=== PATIENT | male | born 1940 | race Caucasian/White ===

== ENCOUNTER 2018-11-17 02:22 | Inpatient (IN) | payer MEDICARE ==
[~2018-11-17] VITALS: Ht 172.7 cm; Wt 77.3 kg
[2018-11-17 04:00] VITALS: BP 169/72
[2018-11-17] MEDS ORDERED: DEXTROSE 50% 50 ML SYRINGE IV PRN ×2 (04:15→19:30)
--- NOTE | 2018-11-17 04:18 | HPEPDOC ---
[facility] Medical History & Physical Date of Admission Nov 17, 2018 Date of Service: Nov 17, 2018 Primary Care Physician: PRETTY PAUL MD Attending Physician: DAVE CABRAL MD History and Physical TIME OF SERVICE: 4:20 AM CHIEF COMPLAINT: Hematuria HISTORY OF PRESENT ILLNESS: Mr. Acosta is a 77-year-old male who was transferred from [facility] for evaluation of hematuria. Per discussion with Dr. Olea, ED Attending, the patient had right hip surgery on November 06, and thereafter had a Sanchez placed . Yesterday morning he noticed blood in the sanchez catheter; it was also irritating his penis , so he went to the ED to have the Sanchez removed. Once the Sanchez removed he had about 10 episodes of voiding jordi blood and clots. The bladder was irrigated and most the contents were bloody and clot filled. After irrigation, the Sanchez was removed but the patient had difficulty voiding. His hemoglobin was 10.5, based on previous records, in 2006 it was 14.6. Orthostats were negative. Currently the patient is complaining of severe abdominal and distention along with and penile pain. He denies having fevers, denies having chills, denies having nausea, and denies having vomiting. REVIEW OF SYSTEMS: 12 point review of systems negative except as listed in HPI PAST MEDICAL/ SURGICAL HISTORY: BPH NIDDM Chronic hypertension. 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 Denies working in a factory exposure to workplace chemicals FAMILY HISTORY: Father had colon cancer Mother had diabetes and coronary artery disease. ALLERGIES: Please see below. HOME MEDICATIONS: Please see below. PHYSICAL EXAMINATION: VITAL SIGNS: Please see below. GENERAL APPEARANCE: Well-nourished, well-developed, appears slightly anxious, does not appear septic HEENT: normocephalic, atraumatic, mucous members moist and pink CARDIOVASCULAR: Regular rate and rhythm. No murmurs, rubs or gallops. Radial pulses are intact. No lower extremity edema LUNGS: Clear to auscultation bilaterally on room air ABDOMEN: Positive bowel sounds, the abdomen is distended and firm on palpation MUSCULOSKELETAL: Range of motion intact in all 4 extremities INTEGUMENT: Is not diaphoretic and the skin is not flushed NEUROLOGICAL: Cranial nerves II-12 are grossly intact. Speech is not dysarthric PSYCHIATRIC: Alert and oriented to person, place and time, able to understand and follow commands LABORATORY DATA: From [facility] CBC: WBC 10.3, hemoglobin 10.5, and platelet count 421 Coags: INR 1, PT 10.3 Chemistry: Sodium 132, potassium 4.2, chloride 97, bicarbonate 28, BUN 18, creatinine 0.9, glucose 178, GFR >60. UA: Red, appearance cloudy, blood large, RBCs too numerous to count IMAGING: Pending MICROBIOLOGY: Pending ASSESSMENT: Mr. Acosta is a 77-year-old male. The past medical history of BPH, type 2 diabetes, and hypertension who is admitted for evaluation of hematuria. PLAN: 1. Hematuria Risk factors for malignancy include age older than 35 years . Remote history of smoking smoking, exposure to chemical toxins such as benzene and aromatic amines, history of pelvic irradiation, chronic analgesic abuse, chronic cystitis, or presence of indwelling foreign object. Plan: Admit to GI medicine/nothing by mouth with IV fluids/ morphine when necessary for pain/lidocaine gel/CT of the abdomen and pelvis with contrast/Urology consult for cystoscopy / Zosyn 2 . BPH Plan continue home meds 3. NIDDM Plan: f/u accuchecks & A1C / hypoglycemia protocol / sliding scale insulin / hold oral anti-glycemics 4. Chronic HTN Plan: c/w home meds DVT prophylaxis with SCDs. Disposition pending clinical course Home Medications Scheduled Aspirin (Aspir-Low) 81 Mg Tablet.dr, 81 MG PO DAILY Atorvastatin Calcium (Atorvastatin Calcium) 20 Mg Tablet, 20 MG PO QHS Docusate Sodium (Stool Softener) 100 Mg Capsule, 100 MG PO BID Ergocalciferol (Vitamin D2) (Vitamin D2) 50,000 Unit Capsule, 50,000 UNIT PO Q2WK 1ST AND 15TH OF MONTH Finasteride (Proscar) 5 Mg Tablet, 5 MG PO QHS Lisinopril (Lisinopril) 10 Mg Tablet, 10 MG PO DAILY Metformin HCl (Metformin HCl ER) 500 Mg Tab.er.24h, 1,000 MG PO BID Thorpe-3 Acid Ethyl Esters (Lovaza) 1 Gm Capsule, 2 CAP PO BID Ropinirole HCl (Ropinirole HCl) 1 Mg Tablet, 2 MG PO BID DINNER AND BEDTIME Tamsulosin HCl (Flomax) 0.4 Mg Capsule, 0.4 MG PO QHS Scheduled PRN Cyclobenzaprine HCl (Cyclobenzaprine HCl) 5 Mg Tablet, 5 MG PO BID PRN for MUSCLE SPASMS Meclizine HCl (Meclizine HCl) 25 Mg Tablet, 25 MG PO TID PRN for NAUSEA OR VOMITING Oxycodone HCl (Oxycodone HCl) 5 Mg Tablet, 5 MG PO Q4H PRN for PAIN Pantoprazole Sodium (Pantoprazole Sodium) 40 Mg Tablet.dr, 40 MG PO DAILY PRN for INDIGESTION Allergies Coded Allergies: ibuprofen (Verified Allergy, Intermediate, HANDS SWELLING, ITCHING, 11/17/18) gabapentin (Verified Adverse Reaction, Intermediate, SEVERE IRRITABILITY/DEPRESSION, 11/17/18) A-FIB/CHADSVASC A-FIB History Current/History of A-Fib/PAF?: No Current PO Anticoag Therapy: DAVE Hirsch MD Nov 17, 2018 04:18
[2018-11-17 04:42] LABS: HEMATOCRIT 30.5 % (42.0-52.0); HEMOGLOBIN 10.1 g/dl (13.5-17.5); MEAN CORPUSCULAR HEMOGLOBIN 30.9 pg (27.0-33.0); MEAN CORPUSCULAR HGB CONC 33.1 g/dl (32.0-36.5); MEAN CORPUSCULAR VOLUME 93.3 fl (80.0-96.0); PLATELET COUNT, AUTOMATED 379 10^3/uL (150-450); RED BLOOD COUNT 3.27 10^6/uL (4.30-6.10)
[2018-11-17] MEDS ORDERED: LIDOCAINE 2% 5ML JELLY UROJET TOP PRN (04:45)
[2018-11-17] MEDS ORDERED: LOVA1CAP17 PO (04:47)
[2018-11-17] MEDS ORDERED: ASPI81TA21 PO (04:47)
[2018-11-17] MEDS ORDERED: PROS5TAB PO (04:47)
[2018-11-17] MEDS ORDERED: PANT-23 PO (04:47)
[2018-11-17] MEDS ORDERED: DOCU-129 PO (04:47)
[2018-11-17] MEDS ORDERED: LISI10TA4 PO (04:47)
[2018-11-17] MEDS ORDERED: FLOM0.4C39 PO (04:47)
[2018-11-17] MEDS ORDERED: METF500T4 PO (04:47)
[2018-11-17] MEDS ORDERED: CYCL5TAB PO (04:47)
[2018-11-17] MEDS ORDERED: OXYC-517 PO (04:47)
[2018-11-17] MEDS ORDERED: ATOR1TAB21 PO (04:47)
[2018-11-17] MEDS ORDERED: MECL-86 PO (04:47)
[2018-11-17] MEDS ORDERED: ROPI1TAB PO (04:47)
[2018-11-17] MEDS ORDERED: VITA500045 PO (04:47)
[2018-11-17 04:53] LABS: PROTHROMBIN TIME 12.9 SECONDS (11.8-14.0)
[2018-11-17 05:06] LABS: ALBUMIN 3.1 GM/DL (3.2-5.2); ALT/SGPT 31 U/L (12-78); BILIRUBIN,TOTAL 0.7 MG/DL (0.2-1.0); BLOOD UREA NITROGEN 19 MG/DL (7-18); CALCIUM LEVEL 9.3 MG/DL (8.8-10.2); CARBON DIOXIDE LEVEL 29 MEQ/L (21-32); CHLORIDE LEVEL 96 MEQ/L (98-107); CREATININE FOR GFR 0.85 MG/DL (0.70-1.30); GLOMERULAR FILTRATION RATE > 60.0 (>42); GLUCOSE, FASTING 197 MG/DL (70-100); POTASSIUM SERUM 4.3 MEQ/L (3.5-5.1); SODIUM LEVEL 132 MEQ/L (136-145); TOTAL PROTEIN 6.3 GM/DL (6.4-8.2)
[2018-11-17 05:36] LABS: HEMOGLOBIN A1c 7.1 %
[2018-11-17] MEDS: MORPHINE 4 MG/ML 1ML VIAL/SYRINGE (J2270) IV PRN (05:40)
[2018-11-17] MEDS: NS 1,000 ML IV SCH ×2 (05:41→23:06)
[2018-11-17] MEDS: PIPERACILLIN/TAZOBACTAM SOD 3.375 GM in D5W MINI-BAG PLUS 50 ML IV SCH ×4 (06:16→23:05)
[2018-11-17 06:29] LABS: GLUCOSE, URINE (UA) MANUAL 4+(1000 MG/DL) mg/dL (NEGATIVE); KETONE, URINE MANUAL 2+ mg/dL (NEGATIVE)
[2018-11-17 06:30] LABS: BILIRUBIN, URINE MANUAL NEGATIVE (NEGATIVE); UROBILINOGEN, URINE MANUAL NORMAL (NORMAL)
[2018-11-17 06:32] LABS: RBC, URINE TNTC /hpf (0-3)
[2018-11-17 06:33] LABS: BACTERIA, URINE SMALL AMOUNT; HYALINE CAST, URINE NONE SEEN /lpf (0-1); SQUAMOUS EPITHELIAL CELL URINE NONE SEEN /hpf (SMALL AMT)
[2018-11-17] MEDS: HumaLOG INSULIN (NovoLOG) PER UNIT SC SCH ×4 (07:30→20:37)
[2018-11-17] MEDS ORDERED: ISOVUE-370 76% 100ML VIAL (Q9967) As Ordered ONE (08:03)
[2018-11-17] MEDS: rOPINIRole 1MG TAB PO SCH ×2 (09:29→20:37)
[2018-11-17] MEDS: PANTOPRAZOLE 40MG TAB (PROTONIX) PO SCH (09:29)
[2018-11-17] MEDS ORDERED: BELLADONNA 16.2mg/OPIUM 30mg 1 EA SUPP PR PRN (10:45)
--- NOTE | 2018-11-17 10:50 | REP ---
CT of the abdomen pelvis multiphase imaging, CT urogram protocol for hematuria: There are no comparison studies. Imaging is initially performed without IV contrast. This is followed by dual phase imaging after IV contrast, initially during the renal cortical phase of enhancement and later during the renal excretion phase of enhancement. There are no comparison studies. Pelvis: There is a large enhancing bladder mass with irregular margins measuring approximately 7.6 cm in diameter predominantly or sterilely in the urinary bladder extending into the mid urinary bladder. There is a small volume of urine anteriorly in the there are bladder over the surface of this large mass. There is a small collection of air anteriorly within the urinary bladder, likely from bladder catheterization. A Cash catheter is identified in the urinary bladder on the right. There is a small volume of air within the Cash catheter balloon. There are bilateral hip arthroplasties resulting in significant beam-hardening artifact and obscuration of the bladder wall posteriorly and inferiorly. The precise site of origin of the bladder mass cannot be identified by CT. No internal or external iliac, pelvic adenopathy is identified, however, beam-hardening artifact obscures the area. Abdomen: There is no periaortic adenopathy or mass. There are a few normal-size nodes. No solid renal masses are identified. There is a Bosniak type 1 simple left renal cyst measuring 4.3 cm anteriorly at the mid/upper pole. There is a nonobstructive right renal lower pole 8 mm calculus. There is no hydronephrosis or hydroureter. The adrenals are unremarkable. The visualized lung gillis are unremarkable. The hepatic parenchyma is homogeneous on all phases of the study. There is faintly visible opaque material in the dependent wall of the gallbladder near the gallbladder neck, which could represent biliary gravel or a tiny gallbladder calculi. The pancreas and spleen are unremarkable. The abdominal aorta is unremarkable except for K occasional calcified atheroma. The bowel and mesentery are unremarkable except for diverticulosis of the sigmoid colon. There is no CT evidence of diverticulitis. There is no ascites. Impression: Large bladder mass as described. Bladder. Cash catheter as described. Small volume of free air in the bladder, likely secondary to catheterization. No hydronephrosis. The left renal cortical cyst. Right renal nonobstructive calculus. No adenopathy or ascites. Diverticulosis without diverticulitis. Biliary gravel versus small gallbladder calculi. No biliary duct dilatation. Electronically Signed by Alexander Sheikh MD 11/17/2018 10:42 A
--- NOTE | 2018-11-17 12:51 | IPNPDOC ---
Subjective Review oF Systems Chief Complaint The patient is a 77-year-old male admitted with a reason for visit of Hematuria. Pt started baby asa after recent hip surgery. Bleeding with clot retention since yesterday. CT reviewed showing sig clot in bladder. General: Denies: ROS Unobtainable, Chills, Night Sweats, Fatigue, Malaise, Normal Appetite, Other Symptoms Constitutional: Denies: Fever, Chills, Sweats, Weakness, Malaise, Other Eyes: Denies: Pain, Vision change, Conjunctivae inflammation, Eyelid inflammation, Redness, Other ENT: Denies: Head Aches, Ear Pain, Dysphagia, Sinus Congestion, Post Nasal Drip, Sore Throat, Epistaxis, Other Symptoms Skin: Denies: Rash, Lesions, Jaundice, Bruising, Itching, Dry, Breakdown, Nail Changes, Other Pulmonary: Denies: Dyspnea, Cough, Pleuritic Chest Pain, Other Symptoms Cardiovascular: Denies Chest Pain, Denies Palpitations, Denies Orthopnea, Den ies Paroxysmal Noc. Dyspnea, Denies Edema, Denies Lt Headedness, Denies Other Symptoms Gastrointestinal: Denies: Nausea, Vomiting, Abdominal Pain, Diarrhea, Constipation, Melena, Hematochezia, Other Symptoms Genitourinary: Reports: Hematuria, Retention Hematologic: Denies: Bruising, Bleeding Excessively, Petecchia, Purpura, Enlarged Lymph Nodes, Other Hematologic Endocrine: Denies: Polydipsia, Polyphagia, Polyuria, Heat Intolerance, Cold Intolerance, Other Endocrine Sx Musculoskeletal: Denies: Neck Pain, Back Pain, Shoulder Pain, Arm Pain, Hand Pain, Leg Pain, Foot Pain, Joint Pain, Muscle Pain, Spasms, Other Symptoms Neurological: Denies: Weakness, Numbness, Incoordination, Change in Speech, Confusion, Seizures, Other Symptoms Psych: Denies: Mood Normal, Anxiety, Depression, Memory Issues, Thoughts of Self Harm, Anger, Thoughts of harming Other, Other Psych Objective Vital Signs/I&O Vital Signs Date Time Temp Pulse Resp B/P (MAP) Pulse Ox O2 Delivery O2 Flow Rate FiO2 11/17/18 05:50 18 11/17/18 05:40 95 11/17/18 04:00 97.3 102 169/72 (104) I&O- Last 24 Hours up to 6 AM 11/17/18 06:00 Intake Total 0 ml Output Total 550 ml Balance -550 ml Laboratory Data Labs 24H Laboratory Tests 2 11/17/18 04:21: Nucleated Red Blood Cells % (auto) 0.0, Prothrombin Time 12.9, Prothromb Time International Ratio 1.00, Anion Gap 7L, Glomerular Filtration Rate > 60.0, Estimated Mean Plasma Glucose 157H, Hemoglobin A1c 7.1, Lactic Acid Level 2.3*H, Blood Urea Nitrogen 19H, Creatinine 0.85, Sodium Level 132L, Potassium Level 4.3, Chloride Level 96L, Carbon Dioxide Level 29, Calcium Level 9.3, Aspartate Amino Transf (AST/SGOT) 15, Alanine Aminotransferase (ALT/SGPT) 31, Alkaline Phosphatase 79, Total Bilirubin 0.7, Total Protein 6.3L, Albumin 3.1L, Albumin/Globulin Ratio 0.97L 11/17/18 06:04: Urine Color (TAWANDA) REDH, Urine Appearance (TAWANDA) TURBIDH, Urine pH (TAWANDA) 7.0, Urine Specific [place] (TAWANDA) 1.010, Urine Protein 3+H, Bedside Urine Glucose (UA) 4+(1000 MG/DL)H, Bedside Urine Ketones (LAB) 2+H, Bedside Urine Blood POSITIVEH, Bedside Urine Nitrite (LAB) TRACEH, Bedside Urine Bilirubin (LAB) NEGATIVE, Bedside Urine Urobilinogen (LAB) NORMAL, Bedside Urine Leukocyte Esterase (L POSITIVEH, Urine Sediment Examination PERFORMED, Urine RBC TNTCH, Urine WBC TNTCH, Urine Squamous Epithelial Cells NONE SEEN, Urine Bacteria SMALL AMOUNTH, Urine Hyaline Casts NONE SEEN 11/17/18 06:42: Bedside Glucose (Misc Panel) 207H 11/17/18 10:20: Lactic Acid Followup at 4 Hours 1.7 11/17/18 11:57: Bedside Glucose (Misc Panel) 157H CBC/BMP Laboratory Tests 11/17/18 04:21 Red Blood Count 3.27 L, Mean Corpuscular Volume 93.3, Mean Corpuscular Hemoglobin 30.9, Mean Corpuscular Hemoglobin Concent 33.1, Red Cell Distribution Width 13.0, Calcium Level 9.3, Aspartate Amino Transf (AST/SGOT) 15, Alanine Aminotransferase (ALT/SGPT) 31, Alkaline Phosphatase 79, Total Bilirubin 0.7, Total Protein 6.3 L, Albumin 3.1 L FSBS Laboratory Tests Test 11/17/18 06:42 11/17/18 11:57 Range/Units Bedside Glucose (Misc Panel) 207 157 83-110 MG/DL Microbiology Microbiology 11/17/18 Urine Culture, Received Pending 11/17/18 Urine Culture, Received Pending Assessment/Plan Date Seen The patient was seen on 11/17/18. Patient Summary A: Gross hematuria with clot retention in pt with BPH related retention after hip surgery on asa - most likely of prostatic origin. CT with lg mass in bladder c/w clot, though BT is possible. Plan/VTE VTE Prophylaxis Ordered?: Yes VTE Exclusion Pharmacological: Hemorrhage Plan/Urinary Catheter Reason for insertion/continuin: Other-document below Plan Continue CBI with periodic hand irrigation. Hold as a and all other anticoagulants. Follow HgB and Tx as needed. would like to delay cysto til asa effect diminishes. IVF: Continue Diet: Advance Activity: [facility]: Repeat Labs in MANAS WHEELER MD Nov 17, 2018 12:51
[2018-11-17 14:00] VITALS: BP 138/63
[2018-11-17] MEDS: ACETAMINOPHEN 500 MG TAB PO PRN (15:09)
[2018-11-17] MEDS ORDERED: GLUCAGON FOR INJ 1 MG VIAL (J1610) SC PRN (19:30)
[2018-11-17] MEDS ORDERED: GLUCOSE 4 GM CHEW TABLET PO PRN (19:30)
[2018-11-17] MEDS: FINASTERIDE 5 MG TAB PO SCH (20:37)
[2018-11-17] MEDS: TAMSULOSIN 0.4 MG CAP PO SCH (20:37)
[2018-11-17] MEDS: ATORVASTATIN 20 MG TAB PO SCH (20:37)
[2018-11-17 22:00] VITALS: BP 135/61
[2018-11-18 02:00] VITALS: BP 134/62
[2018-11-18] MEDS: PIPERACILLIN/TAZOBACTAM SOD 3.375 GM in D5W MINI-BAG PLUS 50 ML IV SCH ×4 (05:13→23:10)
[2018-11-18 06:00] VITALS: BP 123/57
[2018-11-18 06:19] LABS: HEMATOCRIT 22.8 % (42.0-52.0); MEAN CORPUSCULAR HGB CONC 32.9 g/dl (32.0-36.5); MEAN CORPUSCULAR VOLUME 91.2 fl (80.0-96.0); PLATELET COUNT, AUTOMATED 315 10^3/uL (150-450); WHITE BLOOD COUNT 14.6 10^3/uL (4.0-10.0)
[2018-11-18 06:22] LABS: HEMOGLOBIN 7.5 g/dl (13.5-17.5)
[2018-11-18 06:40] LABS: BLOOD UREA NITROGEN 22 MG/DL (7-18); CALCIUM LEVEL 9.3 MG/DL (8.8-10.2); CARBON DIOXIDE LEVEL 31 MEQ/L (21-32); CHLORIDE LEVEL 102 MEQ/L (98-107); CREATININE FOR GFR 0.83 MG/DL (0.70-1.30); GLOMERULAR FILTRATION RATE > 60.0 (>42); GLUCOSE, FASTING 168 MG/DL (70-100); MAGNESIUM LEVEL 2.2 MG/DL (1.8-2.4); POTASSIUM SERUM 4.2 MEQ/L (3.5-5.1); SODIUM LEVEL 137 MEQ/L (136-145)
[2018-11-18] MEDS: HumaLOG INSULIN (NovoLOG) PER UNIT SC SCH ×4 (08:10→20:30)
[2018-11-18] MEDS: rOPINIRole 1MG TAB PO SCH ×2 (08:10→20:34)
[2018-11-18] MEDS: PANTOPRAZOLE 40MG TAB (PROTONIX) PO SCH (08:10)
[2018-11-18] MEDS: ACETAMINOPHEN 500 MG TAB PO PRN ×2 (08:11→22:50)
--- NOTE | 2018-11-18 12:57 | IPNPDOC ---
Subjective Review oF Systems Chief Complaint The patient is a 77-year-old male admitted with a reason for visit of Hematuria. General: Reports: Normal Appetite Constitutional: Reports: Weakness (sl dizziness on standing) Genitourinary: Reports: Hematuria (improving) Objective Physical Examination General Exam: Alert, Cooperative, No Acute Distress Male Exam: Normal Genital Exam Other physical findings Urine nearly clear Vital Signs/I&O Vital Signs Date Time Temp Pulse Resp B/P (MAP) Pulse Ox O2 Delivery O2 Flow Rate FiO2 11/18/18 06:00 98.1 93 20 123/57 (79) 95 I&O- Last 24 Hours up to 6 AM 11/18/18 06:00 Intake Total 1940 ml Output Total 4450 ml Balance -2510 ml Laboratory Data Labs 24H Laboratory Tests 2 11/17/18 17:01: Bedside Glucose (Misc Panel) 204H 11/17/18 20:24: Bedside Glucose (Misc Panel) 172H 11/18/18 05:43: Nucleated Red Blood Cells % (auto) 0.0, Anion Gap 4L, Glomerular Filtration Rate > 60.0, Blood Urea Nitrogen 22H, Creatinine 0.83, Sodium Level 137, Potassium Level 4.2, Chloride Level 102, Carbon Dioxide Level 31, Calcium Level 9.3, Magnesium Level 2.2 11/18/18 12:15: Bedside Glucose (Misc Panel) 172H CBC/BMP Laboratory Tests 11/18/18 05:43 Red Blood Count 2.50 L, Mean Corpuscular Volume 91.2, Mean Corpuscular Hemoglobin 30.0, Mean Corpuscular Hemoglobin Concent 32.9, Red Cell Distribution Width 13.3, Calcium Level 9.3 FSBS Laboratory Tests Test 11/17/18 17:01 11/17/18 20:24 11/18/18 12:15 Range/Units Bedside Glucose (Misc Panel) 204 172 172 83-110 MG/DL Microbiology Microbiology 11/17/18 Blood Culture, Received Pending 11/17/18 Blood Culture, Received Pending 11/17/18 Urine Culture, Received Pending Assessment/Plan Date Seen The patient was seen on 11/18/18. Patient Summary A: Hematuria - improving. Lg amt of clot irrigated from bladder by nursing staff yesterday - very little today. Isolated temp spike. Plan/VTE VTE Prophylaxis Ordered?: Yes VTE Exclusion Pharmacological: Hemorrhage Plan/Urinary Catheter Reason for insertion/continuin: Other-document below (hematuria) Plan P: Prob cysto on with poss Bx and RTGs. TURBT if tumor present. Awaiting culture. OK to PT. Tx if HgB continues to fall IVF: Continue Diet: Advance Activity: [facility]: Repeat Labs in AM MANAS GREEN MD Nov 18, 2018 12:57
[2018-11-18 14:00] VITALS: BP 132/59
--- NOTE | 2018-11-18 14:21 | IPNPDOC ---
Subjective Date Seen The patient was seen on 11/18/18. Subjective Chief Complaint/HPI Had a fever spike yesterday to 102.2 . No further fever episodes today. No chest pain or cough , no abdominal pain , nuase or vomiting or diarrhea. Still has the CBI running. Objective Physical Examination General Exam: Positive: Alert, Cooperative, No Acute Distress Eye Exam: Positive: PERRLA, Conjunctiva & lids normal, EOMI; Negative: Sclera icteric ENT Exam: Positive: Atraumatic, Mucous membr. moist/pink, Pharynx Normal Neck Exam: Positive: Supple; Negative: JVD, thyromegaly Chest Exam: Positive: Clear to auscultation, Normal air movement Heart Exam: Positive: Rate Normal, Regular Rhythm, Normal S1, Normal S2; Negative: Murmurs, Rubs Abdomen Exam: Negative: Normal bowel sounds, BS Hyperactive, BS Hypoactive, Soft, Tenderness, Hepatospenomegaly, Mass, Hernia, Other Extremity Exam: Negative: Clubbing, Cyanosis, Edema Skin Exam: Positive: Nl turgor and temperature; Negative: Rash, Breakdown Assessment /Plan Assessment Mr. Acosta is a 77-year-old male who was transferred from [facility] for evaluation of hematuria. Per discussion with Dr. Olea, ED Attending, the patient had right hip surgery on November 06, and thereafter had a Sanchez placed. Yesterday morning he noticed blood in the sanchez catheter; it was also irritating his penis , so he went to the ED to have the Sanchez removed. Once the Sanchez removed he had about 10 episodes of voiding jordi blood and clots. The bladder was irrigated and most the contents were bloody and clot filled. After irrigation, the Sanchez was removed but the patient had difficulty voiding. His hemoglobin was 10.5, based on previous records, in 2006 it was 14.6. He was transferred hre for urology evaluation . Hematuria--due to bladder mass. improving . had large amounts of clot irrigated yesterday none today . urine faintly pink Ct urogram shows There is a large enhancing bladder mass with irregular margins measuring approximately 7.6 cm in diameter predominantly posteriorly in the urinary bladder extending into the mid urinary bladder. The site of origin of the mas could not be determined. As per urology Prob cysto on with poss Bx and RTGs. TURBT Awaiting culture. urine and blood. had an episode of fever yesterday hold ASA. Anemia acute blood loss anemia from hematuria if hh falls to below 7.0 will transfuse prn. Recent hip surgery on the right hip on 11/06/18 continue PT. BPH flomax and finasteride NIDDM f/u accuchecks & A1C / hypoglycemia protocol / sliding scale insulin HTN bp well controlled will hold lisinopril Hyperlipidemia statin Restless legs continue ropinirole. Plan/VTE VTE Prophylaxis Ordered?: Yes VTE Exclusion Pharmacological: Hemorrhage Plan/Urinary Catheter Reason for insertion/continuin: Other-document below (hematuria) Plan IVF: Continue Diet: Advance Activity: [facility]: Repeat Labs in AM VS, I&O, 24H, Fishbone Vital Signs/I&O Vital Signs Date Time Temp Pulse Resp B/P (MAP) Pulse Ox O2 Delivery O2 Flow Rate FiO2 11/18/18 06:00 98.1 93 20 123/57 (79) 95 I&O- Last 24 Hours up to 6 AM 11/18/18 06:00 Intake Total 1940 ml Output Total 4450 ml Balance -2510 ml Laboratory Data 24H LABS Laboratory Tests 2 11/17/18 17:01: Bedside Glucose (Misc Panel) 204H 11/17/18 20:24: Bedside Glucose (Misc Panel) 172H 11/18/18 05:43: Nucleated Red Blood Cells % (auto) 0.0, Anion Gap 4L, Glomerular Filtration Rate > 60.0, Blood Urea Nitrogen 22H, Creatinine 0.83, Sodium Level 137, Potassium Level 4.2, Chloride Level 102, Carbon Dioxide Level 31, Calcium Level 9.3, Magnesium Level 2.2 11/18/18 12:15: Bedside Glucose (Misc Panel) 172H CBC/BMP Laboratory Tests 11/18/18 05:43 Red Blood Count 2.50 L, Mean Corpuscular Volume 91.2, Mean Corpuscular Hemoglobin 30.0, Mean Corpuscular Hemoglobin Concent 32.9, Red Cell Distribution Width 13.3, Calcium Level 9.3 Microbiology Microbiology 11/17/18 Blood Culture, Received Pending 11/17/18 Blood Culture, Received Pending 11/17/18 Urine Culture, Received Pending REJI ADAMS MD Nov 18, 2018 14:21
[2018-11-18] MEDS: FINASTERIDE 5 MG TAB PO SCH (20:34)
[2018-11-18] MEDS: TAMSULOSIN 0.4 MG CAP PO SCH (20:35)
[2018-11-18] MEDS: ATORVASTATIN 20 MG TAB PO SCH (20:35)
[2018-11-18 22:00] VITALS: BP 126/58
[2018-11-19 02:00] VITALS: BP 123/58
[2018-11-19] MEDS: PIPERACILLIN/TAZOBACTAM SOD 3.375 GM in D5W MINI-BAG PLUS 50 ML IV SCH ×4 (05:02→23:02)
[2018-11-19 06:00] VITALS: BP 136/63
[2018-11-19] MEDS: rOPINIRole 1MG TAB PO SCH ×2 (09:16→20:16)
[2018-11-19] MEDS: PANTOPRAZOLE 40MG TAB (PROTONIX) PO SCH (09:16)
[2018-11-19] MEDS: ACETAMINOPHEN 500 MG TAB PO PRN ×2 (09:17→18:49)
[2018-11-19] MEDS: HumaLOG INSULIN (NovoLOG) PER UNIT SC SCH ×4 (09:18→21:00)
[2018-11-19 10:00] VITALS: BP 138/63
[2018-11-19 12:08] LABS: HEMATOCRIT 21.6 % (42.0-52.0); MEAN CORPUSCULAR HGB CONC 32.4 g/dl (32.0-36.5); MEAN CORPUSCULAR VOLUME 95.6 fl (80.0-96.0); PLATELET COUNT, AUTOMATED 331 10^3/uL (150-450); RED BLOOD COUNT 2.26 10^6/uL (4.30-6.10); WHITE BLOOD COUNT 8.2 10^3/uL (4.0-10.0)
--- NOTE | 2018-11-19 13:10 | IPNPDOC ---
Subjective Review oF Systems Chief Complaint The patient is a 77-year-old male admitted with a reason for visit of Hematuria. General: Reports: Normal Appetite (No pain or chills) Objective Physical Examination General Exam: Alert, Cooperative, No Acute Distress Eye Exam: PERRLA, EOMI Heart Exam: Positive: Rate Normal, Regular Rhythm, Normal S1, Normal S2; Negative: Murmurs, Rubs Male Exam: Normal Genital Exam (urine clear) Skin Exam: Nl turgor and temperature Neuro Exam: Cranial Nerves 3-12 NL Vital Signs/I&O Vital Signs Date Time Temp Pulse Resp B/P (MAP) Pulse Ox O2 Delivery O2 Flow Rate FiO2 11/19/18 10:00 98.2 95 18 138/63 (88) 94 I&O- Last 24 Hours up to 6 AM 11/19/18 06:00 Intake Total 1485 ml Output Total 950 ml Balance 535 ml Laboratory Data Labs 24H Laboratory Tests 2 11/18/18 17:06: Bedside Glucose (Misc Panel) 174H 11/18/18 20:20: Bedside Glucose (Misc Panel) 159H 11/19/18 05:56: Bedside Glucose (Misc Panel) 171H 11/19/18 11:12: Nucleated Red Blood Cells % (auto) 0.0 CBC/BMP Laboratory Tests 11/19/18 11:12 Red Blood Count 2.26 L, Mean Corpuscular Volume 95.6, Mean Corpuscular Hemoglobin 31.0, Mean Corpuscular Hemoglobin Concent 32.4, Red Cell Distribution Width 13.2 FSBS Laboratory Tests Test 11/18/18 17:06 11/18/18 20:20 11/19/18 05:56 Range/Units Bedside Glucose (Misc Panel) 174 159 171 83-110 MG/DL Microbiology Microbiology 11/17/18 Blood Culture - Preliminary, Resulted No growth after 24 hours . All specim... 11/17/18 Blood Culture - Preliminary, Resulted No growth after 24 hours . All specim... 11/17/18 Urine Culture - Final, Complete Enterobacter Cloacae Complex Assessment/Plan Date Seen The patient was seen on 11/19/18. Patient Summary A: Gross hematuria/clot retention Plan/VTE VTE Prophylaxis Ordered?: Yes VTE Exclusion Pharmacological: Hemorrhage Plan/Urinary Catheter Reason for insertion/continuin: Other-document below (hematuria) Plan P: Cysto/rtg/poss Bx tomorrow pm. Risks incl infection, bleeding, anesthesia rxn d/w pt. he wishes to proceed. IVF: Continue Diet: Advance Activity: [facility]: Repeat Labs in AM MANAS GREEN MD Nov 19, 2018 13:10
[2018-11-19 14:00] VITALS: BP 131/61
[2018-11-19 15:57] LABS: BLOOD UREA NITROGEN 16 MG/DL (7-18); CARBON DIOXIDE LEVEL 32 MEQ/L (21-32); CHLORIDE LEVEL 103 MEQ/L (98-107); CREATININE FOR GFR 0.88 MG/DL (0.70-1.30); GLOMERULAR FILTRATION RATE > 60.0 (>42); GLUCOSE, FASTING 197 MG/DL (70-100); POTASSIUM SERUM 4.3 MEQ/L (3.5-5.1); SODIUM LEVEL 138 MEQ/L (136-145)
[2018-11-19 18:00] VITALS: BP 141/64
[2018-11-19] MEDS: TAMSULOSIN 0.4 MG CAP PO SCH (20:15)
[2018-11-19] MEDS: ATORVASTATIN 20 MG TAB PO SCH (20:15)
[2018-11-19] MEDS: FINASTERIDE 5 MG TAB PO SCH (20:15)
--- NOTE | 2018-11-19 21:22 | IPNPDOC ---
Subjective Date Seen The patient was seen on 11/19/18. Subjective Chief Complaint/HPI Mr. Acosta is a 77-year-old male who was transferred from [facility] for evaluation of hematuria. Per discussion with Dr. Olea, ED Attending, the patient had right hip surgery on November 06, and thereafter had a Sanchez placed. Yesterday morning he noticed blood in the sanchez catheter; it was also irritating his penis , so he went to the ED to have the Sanchez removed. Once the Sanchez removed he had about 10 episodes of voiding jordi blood and clots. The bladder was irrigated and most the contents were bloody and clot filled. After irrigation, the Sanchez was removed but the patient had difficulty voiding. His hemoglobin was 10.5, based on previous records, in 2006 it was 14.6. He was transferred hre for urology evaluation Patient is due for cystoscopy tomorrow. General: Reports: ROS Unobtainable Objective Physical Examination General Exam: Positive: Alert, No Acute Distress Eye Exam: Positive: PERRLA, Conjunctiva & lids normal, EOMI; Negative: Sclera icteric ENT Exam: Positive: Atraumatic, Mucous membr. moist/pink, Pharynx Normal Neck Exam: Positive: Supple; Negative: JVD, thyromegaly Chest Exam: Positive: Clear to auscultation, Normal air movement Heart Exam: Positive: Rate Normal, Regular Rhythm, Normal S1, Normal S2; Negative: Murmurs, Rubs Abdomen Exam: Negative: Normal bowel sounds, BS Hyperactive, BS Hypoactive, Soft, Tenderness, Hepatospenomegaly, Mass, Hernia, Other Extremity Exam: Negative: Clubbing, Cyanosis, Edema Skin Exam: Positive: Nl turgor and temperature; Negative: Rash, Breakdown Neuro Exam: Positive: Other (Debilitated,difficult to assess) Assessment /Plan Problems (1) Hematuria Problem Text: Ct abdm/pelvis showing possible bladder mass.Pt will undergo cystoscopy tomorrow,urology following.Will monitor cbc U cx c/w Enterobacter cloacae complex.Pt is on zosyn (2) IDDM (insulin dependent diabetes mellitus) Status: Chronic Problem Text: Continue ssi.Hgba1c 7.1 (3) Hypertension Status: Chronic Problem Text: On lisinopril (4) Restless leg syndrome Status: Chronic Response to Treatment: Stable Problem Text: On ropinirole (5) BPH (benign prostatic hyperplasia) Response to Treatment: Stable Problem Text: On flomax,no report of retention (6) Anemia Status: Acute Problem Text: There is drop of Hgb 7.0.Will repeat in am,if further drop,will transfuse.Pt with recent hip surgery. Plan/VTE VTE Prophylaxis Ordered?: Yes VTE Exclusion Pharmacological: Hemorrhage Plan/Urinary Catheter Reason for insertion/continuin: Other-document below (hematuria) Plan IVF: Continue Diet: Advance Activity: Advance Diagnostics: Repeat Labs in AM Disposition To be determined VS, I&O, 24H, Fishbone Vital Signs/I&O Vital Signs Date Time Temp Pulse Resp B/P (MAP) Pulse Ox O2 Delivery O2 Flow Rate FiO2 11/19/18 18:00 98.5 102 18 141/64 (89) 96 I&O- Last 24 Hours up to 6 AM 11/19/18 06:00 Intake Total 1485 ml Output Total 950 ml Balance 535 ml Laboratory Data 24H LABS Laboratory Tests 2 11/19/18 05:56: Bedside Glucose (Misc Panel) 171H 11/19/18 11:10: Anion Gap 3L, Glomerular Filtration Rate > 60.0, Blood Urea Nitrogen 16, Creatinine 0.88, Sodium Level 138, Potassium Level 4.3, Chloride Level 103, Carbon Dioxide Level 32, Calcium Level 9.0 11/19/18 11:12: Nucleated Red Blood Cells % (auto) 0.0 11/19/18 11:16: Bedside Glucose (Misc Panel) 184H 11/19/18 16:42: Bedside Glucose (Misc Panel) 150H CBC/BMP Laboratory Tests 11/19/18 11:10 Calcium Level 9.0 11/19/18 11:12 Red Blood Count 2.26 L, Mean Corpuscular Volume 95.6, Mean Corpuscular Hemoglobin 31.0, Mean Corpuscular Hemoglobin Concent 32.4, Red Cell Distribution Width 13.2 Microbiology Microbiology 11/17/18 Blood Culture - Preliminary, Resulted No Growth after 48 hours. All Specime... 11/17/18 Blood Culture - Preliminary, Resulted No Growth after 48 hours. All Specime... 11/17/18 Urine Culture - Final, Complete Enterobacter Cloacae Complex YINA LONDON MD Nov 19, 2018 21:22
[2018-11-19 22:00] VITALS: BP 130/63
[2018-11-20] VITALS (8 sets, daily range): BP systolic 128–166; BP diastolic 63–72
[2018-11-20] MEDS ORDERED: BISACODYL 5 MG TAB PO ONE
[2018-11-20] MEDS: ACETAMINOPHEN 500 MG TAB PO PRN ×2 (02:55→12:32)
[2018-11-20] MEDS: PIPERACILLIN/TAZOBACTAM SOD 3.375 GM in D5W MINI-BAG PLUS 50 ML IV SCH ×3 (05:43→17:19)
[2018-11-20] MEDS: MORPHINE 4 MG/ML 1ML VIAL/SYRINGE (J2270) IV PRN (06:02)
[2018-11-20 06:05] LABS: HEMATOCRIT 22.3 % (42.0-52.0); HEMOGLOBIN 7.2 g/dl (13.5-17.5); MEAN CORPUSCULAR HEMOGLOBIN 30.1 pg (27.0-33.0); MEAN CORPUSCULAR HGB CONC 32.3 g/dl (32.0-36.5); MEAN CORPUSCULAR VOLUME 93.3 fl (80.0-96.0); PLATELET COUNT, AUTOMATED 374 10^3/uL (150-450); RED BLOOD COUNT 2.39 10^6/uL (4.30-6.10); WHITE BLOOD COUNT 6.7 10^3/uL (4.0-10.0)
[2018-11-20 06:32] LABS: BLOOD UREA NITROGEN 15 MG/DL (7-18); CALCIUM LEVEL 9.5 MG/DL (8.8-10.2); CARBON DIOXIDE LEVEL 32 MEQ/L (21-32); CHLORIDE LEVEL 104 MEQ/L (98-107); GLOMERULAR FILTRATION RATE > 60.0 (>42); GLUCOSE, FASTING 167 MG/DL (70-100); POTASSIUM SERUM 3.8 MEQ/L (3.5-5.1); SODIUM LEVEL 138 MEQ/L (136-145)
[2018-11-20] MEDS: PANTOPRAZOLE 40MG TAB (PROTONIX) PO SCH (09:47)
[2018-11-20] MEDS: HumaLOG INSULIN (NovoLOG) PER UNIT SC SCH ×4 (09:47→21:00)
[2018-11-20] MEDS: MIRALAX *UNIT DOSE* 17GM PACKET PO SCH (09:47)
[2018-11-20] MEDS: rOPINIRole 1MG TAB PO SCH ×2 (09:48→22:21)
--- NOTE | 2018-11-20 14:40 | IPNPDOC ---
Subjective Date Seen The patient was seen on 11/20/18. Subjective Chief Complaint/HPI Mr. Acosta is a 77-year-old male who was transferred from [facility] for evaluation of hematuria. Per discussion with Dr. Olea, ED Attending, the patient had right hip surgery on November 06, and thereafter had a Sanchez placed. Yesterday morning he noticed blood in the sanchez catheter; it was also irritating his penis , so he went to the ED to have the Sanchez removed. Once the Sanchez removed he had about 10 episodes of voiding jordi blood and clots. The bladder was irrigated and most the contents were bloody and clot filled. After irrigation, the Sanchez was removed but the patient had difficulty voiding. His hemoglobin was 10.5, based on previous records, in 2006 it was 14.6. He was transferred here for urology evaluation Patient will undergo cystoscopy today at 4:00 pm Objective Physical Examination General Exam: Positive: Alert, No Acute Distress Eye Exam: Positive: PERRLA, Conjunctiva & lids normal, EOMI; Negative: Sclera icteric ENT Exam: Positive: Atraumatic, Mucous membr. moist/pink, Pharynx Normal Neck Exam: Positive: Supple; Negative: JVD, thyromegaly Chest Exam: Positive: Clear to auscultation, Normal air movement Heart Exam: Positive: Rate Normal, Regular Rhythm, Normal S1, Normal S2; Negative: Murmurs, Rubs Abdomen Exam: Negative: Normal bowel sounds, BS Hyperactive, BS Hypoactive, Soft, Tenderness, Hepatospenomegaly, Mass, Hernia, Other Extremity Exam: Positive: Other (S/p rt hip surgery with staple in place and surgery incision looking clean.); Negative: Clubbing, Cyanosis, Edema Skin Exam: Positive: Nl turgor and temperature; Negative: Rash, Breakdown Neuro Exam: Positive: Normal Gait, Normal Speech, Cranial Nerves 3-12 NL, Reflexes 2+ Psych Exam: Positive: Mental status NL, Mood NL, Oriented x 3 Assessment /Plan Problems (1) Hematuria Problem Text: Ct abdm/pelvis showing possible bladder mass.Pt will undergo cystoscopy today,urology following.Will monitor cbc U cx c/w Enterobacter cloacae complex.Pt is on zosyn Bladder irrigation. (2) Anemia Status: Acute Problem Text: Likely due to acute blood loss.Patient with recent surgery and has hematuria.Hgb 7.2 today.Will repeat in am,if Hgb<7.0,will transfuse. (3) Status post hip surgery Problem Text: Patient still has kate in place right hip.I called Dr.Robert Ross office([phone]) to find out if the kate need to come out.I spoke with his PA who has stated that the staple can remain,patient will given an appointment to be seen in the office next week to remove the kate.So far the surgical incision healing well without sign of infection. (4) IDDM (insulin dependent diabetes mellitus) Status: Chronic Problem Text: Continue ssi.Hgba1c 7.1 (5) BPH (benign prostatic hyperplasia) Response to Treatment: Stable Problem Text: On flomax,no report of retention (6) Hypertension Status: Chronic Problem Text: On lisinopril (7) Restless leg syndrome Status: Chronic Response to Treatment: Stable Problem Text: On ropinirole Plan/VTE VTE Prophylaxis Ordered?: Yes VTE Exclusion Pharmacological: Hemorrhage Plan/Urinary Catheter Reason for insertion/continuin: Other-document below (hematuria) Plan IVF: Continue Diet: Advance Activity: Advance Diagnostics: Repeat Labs in AM Disposition To be determined VS, I&O, 24H, Fishbone Vital Signs/I&O Vital Signs Date Time Temp Pulse Resp B/P (MAP) Pulse Ox O2 Delivery O2 Flow Rate FiO2 11/20/18 10:00 98.0 91 17 138/63 (88) 97 I&O- Last 24 Hours up to 6 AM 11/20/18 06:00 Intake Total 1702 ml Output Total 4525 ml Balance -2823 ml Laboratory Data 24H LABS Laboratory Tests 2 11/19/18 16:42: Bedside Glucose (Misc Panel) 150H 11/19/18 20:49: Bedside Glucose (Misc Panel) 157H 11/20/18 05:36: Nucleated Red Blood Cells % (auto) 0.0, Anion Gap 2L, Glomerular Filtration Rate > 60.0, Blood Urea Nitrogen 15, Creatinine 0.90, Sodium Level 138, Potassium Level 3.8, Chloride Level 104, Carbon Dioxide Level 32, Calcium Level 9.5 11/20/18 11:43: Bedside Glucose (Misc Panel) 111H CBC/BMP Laboratory Tests 11/20/18 05:36 Red Blood Count 2.39 L, Mean Corpuscular Volume 93.3, Mean Corpuscular Hemoglobin 30.1, Mean Corpuscular Hemoglobin Concent 32.3, Red Cell Distribution Width 13.1, Calcium Level 9.5 Microbiology Microbiology 11/17/18 Blood Culture - Preliminary, Resulted No Growth after 48 hours. All Specime... 11/17/18 Blood Culture - Preliminary, Resulted No Growth after 48 hours. All Specime... 11/17/18 Urine Culture - Final, Complete Enterobacter Cloacae Complex YINA LONDON MD Nov 20, 2018 14:40
--- NOTE | 2018-11-20 19:20 | IPNPDOC ---
Subjective Review oF Systems Chief Complaint The patient is a 77-year-old male admitted with a reason for visit of Hematuria. General: Reports: Normal Appetite Genitourinary: Reports: Hematuria (No clots. Mostly clear today; ) Objective Physical Examination General Exam: Alert, Cooperative, No Acute Distress Eye Exam: PERRLA, EOMI ENT EXAM: Atraumatic Chest Exam: Normal air movement Heart Exam: Positive: Rate Normal, Regular Rhythm, Normal S1, Normal S2; Negative: Murmurs, Rubs ABDOMEN EXAM: Soft Male Exam: Normal Genital Exam (urine clear) Skin Exam: Nl turgor and temperature Neuro Exam: Cranial Nerves 3-12 NL Vital Signs/I&O Vital Signs Date Time Temp Pulse Resp B/P (MAP) Pulse Ox O2 Delivery O2 Flow Rate FiO2 11/20/18 18:00 98.3 78 18 150/67 (94) 96 I&O- Last 24 Hours up to 6 AM 11/20/18 06:00 Intake Total 1702 ml Output Total 4525 ml Balance -2823 ml Laboratory Data Labs 24H Laboratory Tests 2 11/19/18 20:49: Bedside Glucose (Misc Panel) 157H 11/20/18 05:36: Nucleated Red Blood Cells % (auto) 0.0, Anion Gap 2L, Glomerular Filtration Rate > 60.0, Blood Urea Nitrogen 15, Creatinine 0.90, Sodium Level 138, Potassium Level 3.8, Chloride Level 104, Carbon Dioxide Level 32, Calcium Level 9.5 11/20/18 11:43: Bedside Glucose (Misc Panel) 111H CBC/BMP Laboratory Tests 11/20/18 05:36 Red Blood Count 2.39 L, Mean Corpuscular Volume 93.3, Mean Corpuscular H emoglobin 30.1, Mean Corpuscular Hemoglobin Concent 32.3, Red Cell Distribution Width 13.1, Calcium Level 9.5 FSBS Laboratory Tests Test 11/19/18 20:49 11/20/18 11:43 Range/Units Bedside Glucose (Misc Panel) 157 111 83-110 MG/DL Microbiology Microbiology 11/17/18 Blood Culture - Preliminary, Resulted No Growth after 72 hours. All specime... 11/17/18 Blood Culture - Preliminary, Resulted No Growth after 72 hours. All specime... 11/17/18 Urine Culture - Final, Complete Enterobacter Cloacae Complex Assessment/Plan Date Seen The patient was seen on 11/20/18. Problems (1) Hematuria Status: Acute Response to Treatment: Improving Discussed With: Nurse Urology Problem Text: Pt stable today with clear urine. Some catheter related pain. (2) Anemia Status: Acute (3) Status post hip surgery (4) IDDM (insulin dependent diabetes mellitus) Status: Chronic (5) BPH (benign prostatic hyperplasia) (6) Hypertension Status: Chronic (7) Restless leg syndrome Status: Chronic Plan/VTE VTE Prophylaxis Ordered?: Yes VTE Exclusion Pharmacological: Hemorrhage Plan/Urinary Catheter Reason for insertion/continuin: Other-document below (hematuria) Plan cysto with poss bx/clot evacuation IVF: Continue Diet: Advance Activity: Advance Diagnostics: Repeat Labs in MANAS WHEELER MD Nov 20, 2018 19:20
[2018-11-20] MEDS ORDERED: CONRAY-60 60% 50ML VIAL (Q9961) As Ordered ONE (19:27)
[2018-11-20] MEDS ORDERED: dexameTHASONE 4 MG/ML 1ML VIAL (J1100) As Ordered ONE (19:44)
[2018-11-20] MEDS ORDERED: MIDAZOLAM INJ 2 MG/2 ML VIAL (J2250) As Ordered ONE (19:44)
[2018-11-20] MEDS ORDERED: PROPOFOL 200 MG/20 ML VIAL As Ordered ONE (19:44)
[2018-11-20] MEDS ORDERED: LIDOCAINE 2% INJ 100 MG/5 ML SDV (FOR ANES.) As Ordered ONE (19:44)
[2018-11-20] MEDS ORDERED: ONDANSETRON 4MG/2ML VIAL (J2405) As Ordered ONE (19:44)
[2018-11-20] MEDS ORDERED: ePHEDrine SULFATE 25 MG/5 ML(5MG/ML) SYRINGE As Ordered ONE (19:44)
[2018-11-20] MEDS ORDERED: fentaNYL 100 MCG/2 ML INJECTION (J3010) As Ordered ONE (19:44)
[2018-11-20] MEDS ORDERED: PHENYLephrine HCL 500 MCG/5 ML (100MCG/ML) SYRINGE (J2370) As Ordered ONE (19:44)
[2018-11-20] MEDS ORDERED: PERCOCET 5MG/325MG TAB As Ordered ONE (20:36)
[2018-11-20] MEDS ORDERED: HYDROMORPHONE HCL 0.5 MG/ 0.5 ML SYRINGE (J1170 PER 1) As Ordered ONE ×2 (20:42→21:00)
[2018-11-20] MEDS: HYDROMORPHONE HCL 0.5 MG/ 0.5 ML SYRINGE (J1170 PER 1) IV PRN ×3 (20:43→21:00)
[2018-11-20] MEDS ORDERED: ONDANSETRON 4MG/2ML VIAL (J2405) IV PRN (20:45)
[2018-11-20] MEDS ORDERED: LR 1,000 ML IV SCH (20:45)
[2018-11-20] MEDS ORDERED: fentaNYL 100 MCG/2 ML INJECTION (J3010) IV PRN (20:45)
[2018-11-20] MEDS ORDERED: PERCOCET 5MG/325MG TAB PO PRN (20:45)
[2018-11-20] MEDS: FINASTERIDE 5 MG TAB PO SCH (22:21)
[2018-11-20] MEDS: ATORVASTATIN 20 MG TAB PO SCH (22:22)
[2018-11-20] MEDS: TAMSULOSIN 0.4 MG CAP PO SCH (22:22)
[2018-11-21 00:05] VITALS: BP 129/60
[2018-11-21] MEDS: PIPERACILLIN/TAZOBACTAM SOD 3.375 GM in D5W MINI-BAG PLUS 50 ML IV SCH ×3 (00:15→13:34)
[2018-11-21 01:05] VITALS: BP 128/61
[2018-11-21 02:05] VITALS: BP 122/59
[2018-11-21 06:00] VITALS: BP 123/58
[2018-11-21 06:44] LABS: HEMATOCRIT 22.4 % (42.0-52.0); HEMOGLOBIN 7.3 g/dl (13.5-17.5); MEAN CORPUSCULAR HEMOGLOBIN 30.3 pg (27.0-33.0); MEAN CORPUSCULAR HGB CONC 32.6 g/dl (32.0-36.5); MEAN CORPUSCULAR VOLUME 92.9 fl (80.0-96.0); PLATELET COUNT, AUTOMATED 446 10^3/uL (150-450); RED BLOOD COUNT 2.41 10^6/uL (4.30-6.10); WHITE BLOOD COUNT 5.6 10^3/uL (4.0-10.0)
[2018-11-21 07:08] LABS: BLOOD UREA NITROGEN 14 MG/DL (7-18); CALCIUM LEVEL 9.2 MG/DL (8.8-10.2); CARBON DIOXIDE LEVEL 30 MEQ/L (21-32); CHLORIDE LEVEL 104 MEQ/L (98-107); CREATININE FOR GFR 0.72 MG/DL (0.70-1.30); GLOMERULAR FILTRATION RATE > 60.0 (>42); GLUCOSE, FASTING 165 MG/DL (70-100); POTASSIUM SERUM 4.4 MEQ/L (3.5-5.1); SODIUM LEVEL 137 MEQ/L (136-145)
[2018-11-21] MEDS: PANTOPRAZOLE 40MG TAB (PROTONIX) PO SCH (08:04)
[2018-11-21] MEDS: rOPINIRole 1MG TAB PO SCH (08:04)
[2018-11-21] MEDS: HumaLOG INSULIN (NovoLOG) PER UNIT SC SCH ×2 (08:05→13:35)
[2018-11-21] MEDS: MIRALAX *UNIT DOSE* 17GM PACKET PO SCH (08:05)
--- NOTE | 2018-11-21 08:28 | IPNPDOC ---
Subjective Review oF Systems Chief Complaint The patient is a 77-year-old male admitted with a reason for visit of Hematuria. No complaints except for cath irritation Objective Physical Examination General Exam: Alert, Cooperative, No Acute Distress Eye Exam: PERRLA, EOMI ENT EXAM: Atraumatic Chest Exam: Normal air movement Heart Exam: Positive: Rate Normal, Regular Rhythm, Normal S1, Normal S2; Negative: Murmurs, Rubs ABDOMEN EXAM: Soft Male Exam: Normal Genital Exam (urine clear) Skin Exam: Nl turgor and temperature Neuro Exam: Cranial Nerves 3-12 NL Vital Signs/I&O Vital Signs Date Time Temp Pulse Resp B/P (MAP) Pulse Ox O2 Delivery O2 Flow Rate FiO2 11/21/18 06:00 97.2 78 20 123/58 (79) 95 I&O- Last 24 Hours up to 6 AM 11/21/18 06:00 Intake Total 1880 ml Output Total 2850 ml Balance -970 ml Laboratory Data Labs 24H Laboratory Tests 2 11/20/18 11:43: Bedside Glucose (Misc Panel) 111H 11/20/18 16:38: Bedside Glucose (Misc Panel) 132H 11/20/18 21:41: Bedside Glucose (Misc Panel) 159H 11/21/18 05:47: Nucleated Red Blood Cells % (auto) 0.0, Anion Gap 3L, Glomerular Filtration Rate > 60.0, Blood Urea Nitrogen 14, Creatinine 0.72, Sodium Level 137, Potassium Level 4.4, Chloride Level 104, Carbon Dioxide Level 30, Calcium Level 9.2 CBC/BMP Laboratory Tests 11/21/18 05:47 Red Blood Count 2.41 L, Mean Corpuscular Volume 92.9, Mean Corpuscular Hemoglobin 30.3, Mean Corpuscular Hemoglobin Concent 32.6, Red Cell Distribution Width 13.2, Calcium Level 9.2 FSBS Laboratory Tests Test 11/20/18 11:43 11/20/18 16:38 11/20/18 21:41 Range/Units Bedside Glucose (Misc Panel) 111 132 159 83-110 MG/DL Microbiology Microbiology 11/17/18 Blood Culture - Preliminary, Resulted No Growth after 72 hours. All specime... 11/17/18 Blood Culture - Preliminary, Resulted No Growth after 72 hours. All specime... 11/17/18 Urine Culture - Final, Complete Enterobacter Cloacae Complex Assessment/Plan Date Seen The patient was seen on 11/21/18. Patient Summary A: Urine clear after clot evacuation/fug prostatic vv; retention; enterobacter colonization P: Voiding trial now. Home with sanchez if fails. Rec 7-10 days of septra or fluoroquinolone; F/U 1 week in urology. No asa. Sign off Problems (1) Hematuria Status: Acute Response to Treatment: Improving Discussed With: Nurse Urology Problem Text: Pt stable today with clear urine. Some catheter related pain. (2) Anemia Status: Acute (3) Status post hip surgery (4) IDDM (insulin dependent diabetes mellitus) Status: Chronic (5) BPH (benign prostatic hyperplasia) (6) Hypertension Status: Chronic (7) Restless leg syndrome Status: Chronic Plan/VTE VTE Prophylaxis Ordered?: Yes VTE Exclusion Pharmacological: Hemorrhage Plan/Urinary Catheter Reason for insertion/continuin: Other-document below (hematuria) Plan IVF: Continue Diet: Advance Activity: Advance Diagnostics: Repeat Labs in AM MANAS GREEN MD Nov 21, 2018 08:27
[2018-11-21] MEDS ORDERED: NS 1,000 ML IV SCH (09:00)
--- NOTE | 2018-11-21 09:11 | REP ---
C-ARM VIEWS DURING RETROGRADE PYELOGRAM: Three C-arm views are performed. First image shows contrast opacification of the left pelvicalyceal system which shows no definite filling defect. Left ureter is also opacified on the first and second images with no gross filling defect or stricture. Third image shows partial opacification of bilateral pelvicalyceal systems and ureters. 6 seconds fluoroscopy time utilized. Electronically Signed by Alexander Bautista MD 11/21/2018 10:54 A
[2018-11-21 10:00] VITALS: BP 135/63
[2018-11-21 14:00] VITALS: BP 133/62
[2018-11-21] MEDS ORDERED: CEFU1TAB20 PO (14:28)
--- NOTE | 2018-11-21 14:31 | DS.PDOC ---
Discharge Summary General Date of Admission Nov 17, 2018 at 13:10 Date of Discharge October Primary Care Physician: Erlinda Rainey DO [facility] Attending Physician: YINA LONDON MD Specialist/Consultants Involve: MANAS GREEN MD Discharge Summary PROCEDURES PERFORMED DURING STAY: [None]. ADMITTING DIAGNOSES: Hematuria Anemia due to blood loss IDDM BPH HTN Restless leg syndrome DISCHARGE DIAGNOSES: Hematuria Anemia due to blood loss IDDM BPH HTN Restless leg syndrome COMPLICATIONS/CHIEF COMPLAINT: Hematuria. HISTORY OF PRESENT ILLNESS: . Mr. Acosta is a 77-year-old male who was transferred from [facility] for evaluation of hematuria. Per discussion with Dr. Olea, ED Attending, the patient had right hip surgery on November 06, and thereafter had a Sanchez placed. Yesterday morning he noticed blood in the sanchez catheter; it was also irritating his penis , so he went to the ED to have the Sanchez removed. Once the Sanchez removed he had about 10 episodes of voiding jordi blood and clots. The bladder was irrigated and most the contents were bloody and clot filled. After irrigation, the Sanchez was removed but the patient had difficulty voiding. His hemoglobin was 10.5, based on previous records, in 2006 it was 14.6. Orthostats were negative. Currently the patient is complaining of severe abdominal and distention along with and penile pain. He denies having fevers, denies having chills, denies having nausea, and denies having vomiting. HOSPITAL COURSE: . 77-year-old male who was transferred from [facility] for evaluation of hematuria. Patient had right hip surgery on November 06, and thereafter had a Sanchez placed.The day of admission he noted blood in the sanchez catheter; it was also irritating his penis , so he went to the ED to have the Sanchez removed. Once the Sanchez removed he had about 10 episodes of voiding jordi blood and clots. The bladder was irrigated and most the contents were bloody and clot filled. After irrigation, the Sanchez was removed but the patient had difficulty voiding. His hemoglobin was 10.5.CT abdomen/pelvis showed clots vs mass in the bladder.Urology was consulted on admission and patient continued to have the sanchez with bladder irrigation.On 11/20/18,bladder irrigation was discontinued and patient had a cystoscopy done which showed blood clots and no mass.So far no more hematuria has been noted since yesterday.Today urology has evaluated patient and has cleared him for discharge.Hgb 7.3,blood transfusion 1 unit was ordered,however it was difficult to obtain an iv access and patient has preferred not to proceed with the transfusion.During the hospitalization,Ucx grew Enterobacter cloacae and was started on zosyn.This can be contaminant but urology prefer to continue atbx for 10 more days.Patient will follow up with urology in outpatient. DISCHARGE MEDICATIONS: Please see below. ALLERGIES: Please see below. PHYSICAL EXAMINATION ON DISCHARGE: VITAL SIGNS: Please see below. GENERAL:not in distress,well nourishes HEENT:perrla,at/nc NECK:supple,no jvd CARDIOVASCULAR EXAMINATION:s1s2 nl,no m/g RESPIRATORY EXAMINATION:ctab ABDOMINAL EXAMINATION:soft,not tender. EXTREMITIES:no edema,good pulses SKIN:rash NEUROLOGICAL EXAMINATION:no deficit PSYCHIATRIC EXAMINATION:calm,no anious LABORATORY DATA: Please see below. IMAGING: CT abdomen/pelvis: Large bladder mass as described. Bladder. Sanchez catheter as described. Small volume of free air in the bladder, likely secondary to catheterization. No hydronephrosis. The left renal cortical cyst. Right renal nonobstructive calculus. No adenopathy or ascites. Diverticulosis without diverticulitis. Biliary gravel versus small gallbladder calculi. No biliary duct dilatation. PROGNOSIS:good ACTIVITY: [As tolerated]. DIET:diabetic DISCHARGE PLAN: Follow-up with pcp,urology DISPOSITION: . Home DISCHARGE INSTRUCTIONS: Take medications as prescribed Follow-up with pcp,urology,ortho Patient was informed that ortho was made aware that he is in the hospital and will see him next week DISCHARGE CONDITION: [Stable]. TIME SPENT ON DISCHARGE: Greater than 35 minutes. Vital Signs/I&Os Vital Signs Date Time Temp Pulse Resp B/P (MAP) Pulse Ox O2 Delivery O2 Flow Rate FiO2 11/21/18 10:00 98.1 93 18 135/63 (87) 96 I&O- Last 24 Hours up to 6 AM 11/21/18 06:00 Intake Total 1880 ml Output Total 2850 ml Balance -970 ml Laboratory Data Labs 24H Laboratory Tests 2 11/20/18 16:38: Bedside Glucose (Misc Panel) 132H 11/20/18 21:41: Bedside Glucose (Misc Panel) 159H 11/21/18 05:47: Nucleated Red Blood Cells % (auto) 0.0, Anion Gap 3L, Glomerular Filtration Rate > 60.0, Blood Urea Nitrogen 14, Creatinine 0.72, Sodium Level 137, Potassium Level 4.4, Chloride Level 104, Carbon Dioxide Level 30, Calcium Level 9.2 11/21/18 11:54: Bedside Glucose (Misc Panel) 192H CBC/BMP Laboratory Tests 11/21/18 05:47 Red Blood Count 2.41 L, Mean Corpuscular Volume 92.9, Mean Corpuscular Hemoglobin 30.3, Mean Corpuscular Hemoglobin Concent 32.6, Red Cell Distribution Width 13.2, Calcium Level 9.2 FSBS Laboratory Tests Test 11/20/18 16:38 11/20/18 21:41 11/21/18 11:54 Range/Units Bedside Glucose (Misc Panel) 132 159 192 83-110 MG/DL Microbiology Microbiology 11/17/18 Blood Culture - Preliminary, Resulted No Growth after 72 hours. All specime... 11/17/18 Blood Culture - Preliminary, Resulted No Growth after 72 hours. All specime... 11/17/18 Urine Culture - Final, Complete Enterobacter Cloacae Complex Discharge Medications Scheduled Aspirin (Aspir-Low) 81 Mg Tablet.dr, 81 MG PO DAILY, (Reported) Atorvastatin Calcium (Atorvastatin Calcium) 20 Mg Tablet, 20 MG PO QHS, (Reported) Docusate Sodium (Stool Softener) 100 Mg Capsule, 100 MG PO BID, (Reported) Ergocalciferol (Vitamin D2) (Vitamin D2) 50,000 Unit Capsule, 50,000 UNIT PO Q2WK, (Reported) 1ST AND 15TH OF MONTH Finasteride (Proscar) 5 Mg Tablet, 5 MG PO QHS, (Reported) Lisinopril (Lisinopril) 10 Mg Tablet, 10 MG PO DAILY, (Reported) Metformin HCl (Metformin HCl ER) 500 Mg Tab.er.24h, 1,000 MG PO BID, (Reported) [place]-3 Acid Ethyl Esters (Lovaza) 1 Gm Capsule, 2 CAP PO BID, (Reported) Ropinirole HCl (Ropinirole HCl) 1 Mg Tablet, 2 MG PO BID, (Reported) DINNER AND BEDTIME Tamsulosin HCl (Flomax) 0.4 Mg Capsule, 0.4 MG PO QHS, (Reported) Scheduled PRN Cyclobenzaprine HCl (Cyclobenzaprine HCl) 5 Mg Tablet, 5 MG PO BID PRN for MUSCLE SPASMS, (Reported) Meclizine HCl (Meclizine HCl) 25 Mg Tablet, 25 MG PO TID PRN for NAUSEA OR VOMITING, (Reported) Oxycodone HCl (Oxycodone HCl) 5 Mg Tablet, 5 MG PO Q4H PRN for PAIN, (Reported) Pantoprazole Sodium (Pantoprazole Sodium) 40 Mg Tablet.dr, 40 MG PO DAILY PRN for INDIGESTION, (Reported) Allergies Coded Allergies: ibuprofen (Verified Allergy, Intermediate, HANDS SWELLING, ITCHING, 11/17/18) gabapentin (Verified Adverse Reaction, Intermediate, SEVERE IRRITABILITY/DEPRESSION, 11/17/18) YINA LONDON MD Nov 21, 2018 14:31
--- NOTE | 2018-11-23 10:51 | RO ---
DATE OF PROCEDURE: 11/20/2018 PREPROCEDURE DIAGNOSIS: Gross hematuria with mass in bladder, clot retention. POSTPROCEDURE DIAGNOSIS: Clot retention. PROCEDURE: Cystoscopy, bilateral retrograde ureteropyelography, fulguration of prostate, evacuation of clot. SURGEON: Rashel Carter MD SILK SCREEN REPAIRER: ANESTHESIA: General. INDICATION: This 77-year-old man underwent hip surgery last week. Postoperatively, he had urinary retention and a catheter was placed, this after failing voiding trial. The patient was also on aspirin therapy for anticoagulation purposes. A day or so after catheter placement, he developed progressively reddening of his urine and ultimately clotted off his catheter. This could not be cleared. He was transferred to [facility] where a 24-Mosotho three-way Cash catheter was placed to continuous bladder irrigation, and this combined with hand irrigation was able to clear a large volume of clot from his bladder. Irrigation became clear. A CT scan done prior to clot evacuation showed a large mass effect in the bladder. This was read as a possible bladder tumor. It was my impression that this was merely clot. The patient was admitted and monitored on continuous bladder irrigation. His hemoglobin fell from 10 to 7.2. We wanted to wait a few days off aspirin to improve platelet function and brought him to the operating room (OR) tonight for evaluation endoscopically. DESCRIPTION OF PROCEDURE: After the informed consent of the patient, he was taken to the operating room where after induction of adequate anesthetic, he was prepped and draped in the usual manner. The catheter was removed prior to prep and drape. The 22-Mosotho diagnostic cystoscope was advanced to the bladder, and the bladder inspected with 30- and 70-degree lenses. There was a moderate amount of clot in the bladder. This was removed with the assistance of an Ellik evacuator and with a Phong syringe. Upon clearing the clot, we re-inspected the bladder, identified the ureteral orifices, and noted an enlarged prostate with a 4-5 cm prostatic urethra and a very prominent median lobe with several oozing prostatic vessels. Bilateral retrograde ureteropyelography was performed with a 8-Mosotho cone-tipped catheter inserted sequentially at each ureteral orifice. Iodinated contrast was then instilled in a retrograde manner, and this demonstrated prompt filling and emptied the ureters, the findings felt to be normal. The Bugbee electrode was used to fulgurate all prostatic bleeders. The procedure was concluded with placement of a 20-Mosotho two-way Cash catheter, and the patient to recovery in satisfactory condition. There were no intraoperative complications. Estimated blood loss was less than 20 mL. DISPOSITION: He is to continue under observation. We will consider a voiding trial when urine clear, possibly as soon as the morning.
== END 2018-11-21 16:10 | disposition home or self-care (01) | DRG 666 ==
LOC: M MSPAV 03:56 → INTOOBSV 03:56 → OBSVTOIN 13:10
PROVIDERS: ADMIT Internal Medicine; ATTEND Internal Medicine
PROC: 0TCB8ZZ Extirpation of Matter from Bladder, Via Natural or Artificial Opening Endoscopic (ICD-10-PCS; 2018-11-20)
PROC: 0V508ZZ Destruction of Prostate, Via Natural or Artificial Opening Endoscopic (ICD-10-PCS; principal; 2018-11-20 16:30)
DX: R31.0 Gross hematuria (principal); D62 Acute posthemorrhagic anemia; N40.1 Benign prostatic hyperplasia with lower urinary tract symptoms; E11.9 Type 2 diabetes mellitus without complications; R33.9 Retention of urine, unspecified; I10 Essential (primary) hypertension; G25.81 Restless legs syndrome; E78.5 Hyperlipidemia, unspecified; Z87.891 Personal history of nicotine dependence; Z79.82 Long term (current) use of aspirin; Z79.84 Long term (current) use of oral hypoglycemic drugs; Z79.899 Other long term (current) drug therapy; Z88.6 Allergy status to analgesic agent; Z88.8 Allergy status to other drugs, medicaments and biological substances

== ENCOUNTER 2018-11-21 23:45 | Emergency (ER) | payer MEDICARE ==
[~2018-11-21] VITALS: Ht 172.7 cm; Wt 79.5 kg
[~2018-11-21 23:45] MED LIST: ASPI81TA21 PO; ATOR1TAB21 PO; CEFU1TAB20 PO; CYCL5TAB PO; DOCU-129 PO; FLOM0.4C39 PO; LISI10TA4 PO; LOVA1CAP17 PO; MECL-86 PO; METF-791 PO; OXYC-517 PO; PANT-23 PO; PROS5TAB PO; ROPI1TAB PO; VITA500045 PO
[2018-11-21 23:46] VITALS: BP 175/78
[2018-11-22] MEDS ORDERED: LIDOCAINE 2% 5ML JELLY UROJET TOP ONE (00:15)
== END 2018-11-22 00:49 | disposition home or self-care (01) ==
LOC: M ED 23:45
DX: R33.9 Retention of urine, unspecified (principal); E11.9 Type 2 diabetes mellitus without complications; I10 Essential (primary) hypertension; K21.9 Gastro-esophageal reflux disease without esophagitis; E78.5 Hyperlipidemia, unspecified; N40.1 Benign prostatic hyperplasia with lower urinary tract symptoms; Z79.84 Long term (current) use of oral hypoglycemic drugs; Z79.899 Other long term (current) drug therapy; Z88.6 Allergy status to analgesic agent; Z88.8 Allergy status to other drugs, medicaments and biological substances

== ENCOUNTER → 2018-11-26 | Outpatient (REF) | payer MEDICARE ==
[~2018-11-26] MED LIST changes: +ACET1TAB55 PO; +CEFD300CAP PO; +FERR325T88 PO; +KEFL500C17 PO
== END ==
LOC: M SMT 12:47
PROVIDERS: ATTEND Urology
DX: N40.1 Benign prostatic hyperplasia with lower urinary tract symptoms (principal)
CPT/HCPCS: 51700; 87086; G0463

== ENCOUNTER 2018-12-10 18:53 | Observation (INO) | payer MEDICARE ==
[~2018-12-10] VITALS: Ht 172.7 cm; Wt 76.3 kg
[~2018-12-10 18:53] MED LIST changes: -ACET1TAB55 PO; -CEFD300CAP PO; -FERR325T88 PO; -KEFL500C17 PO
[2018-12-10 19:56] LABS: BASO % 0.1 % (0.0-1.0); HEMOGLOBIN 11.2 g/dl (13.5-17.5); LYMPH # 1.7 10^3/uL (1.5-5.0); LYMPH % 15.7 % (24.0-44.0); MEAN CORPUSCULAR HEMOGLOBIN 30.4 pg (27.0-33.0); MEAN CORPUSCULAR VOLUME 94.9 fl (80.0-96.0); MONO # 0.7 10^3/uL (0.0-0.8); MONO % 6.5 % (0.0-5.0); NEUTROPHILS # 8.4 10^3/uL (1.5-8.5); NEUTROPHILS % 77.1 % (36.0-66.0); PLATELET COUNT, AUTOMATED 164 10^3/uL (150-450); RED BLOOD COUNT 3.69 10^6/uL (4.30-6.10); WHITE BLOOD COUNT 10.9 10^3/uL (4.0-10.0)
[2018-12-10] MEDS ORDERED: ACETAMINOPHEN TAB 650MG DOSE (2X325MG) PO ONE (20:15)
[2018-12-10] MEDS ORDERED: NS 1,000 ML IV ONE (20:15)
[2018-12-10 20:26] LABS: ALBUMIN 3.4 GM/DL (3.2-5.2); ALT/SGPT 13 U/L (12-78); BILIRUBIN,TOTAL 0.9 MG/DL (0.2-1.0); BLOOD UREA NITROGEN 15 MG/DL (7-18); CALCIUM LEVEL 9.4 MG/DL (8.8-10.2); CARBON DIOXIDE LEVEL 28 MEQ/L (21-32); CHLORIDE LEVEL 99 MEQ/L (98-107); GLOMERULAR FILTRATION RATE > 60.0 (>42); GLUCOSE, FASTING 180 MG/DL (70-100); SODIUM LEVEL 136 MEQ/L (136-145); TOTAL PROTEIN 6.5 GM/DL (6.4-8.2)
[2018-12-10 21:01] LABS: INFLUENZA A AMPLIFICATION NEGATIVE (NEGATIVE); INFLUENZA B AMPLIFICATION NEGATIVE (NEGATIVE)
[2018-12-10 21:14] LABS: CK-MB VALUE MASS < 1.0 NG/ML (<3.6); CPK CREATINE PHOSPHOKINASE 70 U/L (39-308); MB/CK RELATIVE INDEX 1.43 (< OR =4); TROPONIN I < 0.02 NG/ML (< 0.10)
--- NOTE | 2018-12-10 21:51 | REPVR ---
EXAM: XR Chest, 2 Views EXAM DATE/TIME: 12/10/2018 8:14 PM CLINICAL HISTORY: 77 years old, male; Fever TECHNIQUE: Imaging protocol: XR of the chest Views: 2 views. COMPARISON: No relevant prior studies available. FINDINGS: Lungs: Unremarkable. No consolidation. Pleural space: Unremarkable. No pleural effusion. No pneumothorax. Heart/Mediastinum: Unremarkable. No cardiomegaly. Bones/joints: Unremarkable. IMPRESSION: No evidence for acute pulmonary disease. Electronically signed by: James Pascal On 12/10/2018 21:50:38 PM
--- NOTE | 2018-12-10 21:52 | REPVR ---
EXAM: CT Head Without Contrast EXAM DATE/TIME: 12/10/2018 9:03 PM CLINICAL HISTORY: 77 years old, male; Pain; Headache; Additional info: Trauma TECHNIQUE: Imaging protocol: Computed tomography of the head without contrast. Radiation optimization: All CT scans at this facility use at least one of these dose optimization techniques: automated exposure control; mA and/or kV adjustment per patient size (includes targeted exams where dose is matched to clinical indication); or iterative reconstruction. COMPARISON: No relevant prior studies available. FINDINGS: Brain: Patchy lucencies in the white matter are nonspecific but most suggestive of chronic microvascular ischemic disease. There is no evidence for large acute cortical infarct. No intracranial hemorrhage or extraaxial collection is identified. There is no significant intracranial mass effect. Ventricles: Normal. No ventriculomegaly. Bones/joints: Unremarkable. No acute fracture. Sinuses: Mild chronic mucosal disease involves the left maxillary and sphenoid sinuses. The visualized paranasal sinuses and air cells are otherwise clear. Mastoid air cells: Visualized mastoid air cells are well aerated. Soft tissues: Unremarkable. Vasculature: Intracranial atherosclerotic vascular calcifications are noted. IMPRESSION: No CT evidence for acute intracranial abnormality. Electronically signed by: James Pascal On 12/10/2018 21:52:44 PM
--- NOTE | 2018-12-10 21:58 | REPVR ---
EXAM: CT Cervical Spine Without Contrast EXAM DATE/TIME: 12/10/2018 9:03 PM CLINICAL HISTORY: 77 years old, male; Neck pain; Additional info: Trauma TECHNIQUE: Imaging protocol: Computed tomography images of the cervical spine without contrast. Radiation optimization: All CT scans at this facility use at least one of these dose optimization techniques: automated exposure control; mA and/or kV adjustment per patient size (includes targeted exams where dose is matched to clinical indication); or iterative reconstruction. COMPARISON: No relevant prior studies available. FINDINGS: There are operative changes of fusion from C4-T1, including disc spacer and anterior plate fusion across the C4-5, osseous fusion across the C5-6, C6-7 and C7-T1 levels, and anterior hardware fusion from C6-T1, with a metallic plate affixed to the cortices of each of the C6, C7 and T1 vertebrae with 2 screws at each level. Vertebral body heights are intact. Straightening of the cervical lordotic curve could be secondary to muscle spasm or positioning. Alignment is otherwise maintained. No acute fracture is identified. The lung apices demonstrate some pleural-based scarring. No apical pneumothorax is identified. There is multilevel facet arthrosis, disc space narrowing and marginal osteophyte formation. There is also multilevel syndesmophyte formation, which could relate to ankylosing spondylitis. There is degenerative ossification of ligamentum nuchae. There is multilevel spondylosis with variable osteophytic encroachment of several neural foramina. CT is not optimal for the evaluation of the discs, neural foramina or spinal canal or cord. There appears to be spinal stenosis at C5-6 and C6-7. IMPRESSION: 1. No acute fracture or dislocation identified. 2. Postoperative and degenerative changes as described with probable multilevel spinal stenosis. The discs, neural foramina and spinal canal could be better evaluated by means of MRI as clinically appropriate. Electronically signed by: James Pascal On 12/10/2018 21:58:15 PM
[2018-12-10] MEDS ORDERED: KEFL500C17 PO (23:00)
[2018-12-10] MEDS ORDERED: CEPHALEXIN 500 MG CAP PO ONE (23:00)
[2018-12-11] MEDS ORDERED: ACETAMINOPHEN TAB 650MG DOSE (2X325MG) PO ONE (00:45)
--- NOTE | 2018-12-11 03:37 | ED PDOC ---
Post-Departure Follow-Up ED Progress note After plan to DC home, pt felt weak again, family uncomfortable taking patient home. Plan admit. Discussed with hospitalist who will see patient. MAURI FRANCES MD Dec 11, 2018 03:37
[2018-12-11] MEDS ORDERED: MOM 30ML SUSPENSION UDC PO PRN (05:15)
[2018-12-11] MEDS ORDERED: MAALOX 30 ML SUSP *UDC PO PRN (05:15)
[2018-12-11 06:00] VITALS: BP 127/58
[2018-12-11] MEDS: FINASTERIDE 5 MG TAB PO SCH ×2 (06:42→20:52)
[2018-12-11] MEDS: ATORVASTATIN 20 MG TAB PO SCH ×2 (06:42→20:53)
[2018-12-11] MEDS: HEPARIN SOD (PORCINE) 5000 UNITS/ML VIAL SC SCH ×3 (06:42→20:53)
[2018-12-11] MEDS: TAMSULOSIN 0.4 MG CAP PO SCH ×2 (06:42→20:53)
--- NOTE | 2018-12-11 07:29 | ECGEPIP ---
[facility] - ED Test Date: 2018-12-10 Pat Name: BONNIE CONNOLLY Department: Room: [place] [address] Gender: Male City Controller: MAXIMO : 1940 Requested By: MAURI Grace Order Number: [id number] Reading MD: Silvina Ribera Measurements Intervals [place] Rate: 104 P: 58 [place]: 136 QRS: 38 QRSD: 86 T: 49 QT: 300 QTc: 395 Interpretive Statements SINUS TACHYCARDIA ABNORMAL RHYTHM ECG NSTTW abnormalities No prior Electronically Signed on 12-11-2018 7:29:12 EDT by Silvina Ribera
[2018-12-11] MEDS ORDERED: GLUCOSE 4 GM CHEW TABLET PO PRN (08:00)
[2018-12-11] MEDS ORDERED: GLUCAGON FOR INJ 1 MG VIAL (J1610) SC PRN (08:00)
[2018-12-11] MEDS ORDERED: DEXTROSE 50% 50 ML SYRINGE IV PRN (08:00)
[2018-12-11 08:17] LABS: HEMATOCRIT 34.6 % (42.0-52.0); MEAN CORPUSCULAR HEMOGLOBIN 30.6 pg (27.0-33.0); MEAN CORPUSCULAR HGB CONC 31.8 g/dl (32.0-36.5); MEAN CORPUSCULAR VOLUME 96.1 fl (80.0-96.0); PLATELET COUNT, AUTOMATED 155 10^3/uL (150-450); WHITE BLOOD COUNT 10.4 10^3/uL (4.0-10.0)
[2018-12-11 08:42] LABS: ALBUMIN 3.2 GM/DL (3.2-5.2); ALT/SGPT 16 U/L (12-78); BILIRUBIN,TOTAL 0.8 MG/DL (0.2-1.0); BLOOD UREA NITROGEN 17 MG/DL (7-18); CALCIUM LEVEL 9.5 MG/DL (8.8-10.2); CARBON DIOXIDE LEVEL 26 MEQ/L (21-32); CHLORIDE LEVEL 105 MEQ/L (98-107); CREATININE FOR GFR 1.09 MG/DL (0.70-1.30); GLOMERULAR FILTRATION RATE > 60.0 (>42); GLUCOSE, FASTING 144 MG/DL (70-100); POTASSIUM SERUM 3.8 MEQ/L (3.5-5.1); SODIUM LEVEL 140 MEQ/L (136-145); TOTAL PROTEIN 6.7 GM/DL (6.4-8.2)
[2018-12-11] MEDS: DOCUSATE SODIUM 100 MG CAP PO SCH ×2 (08:43→20:53)
[2018-12-11] MEDS: ACETAMINOPHEN TAB 650MG DOSE (2X325MG) PO PRN ×3 (08:43→19:26)
[2018-12-11] MEDS: LISINOPRIL 10 MG TAB PO SCH (08:45)
[2018-12-11] MEDS ORDERED: metFORMIN XR 500MG TAB *GLUCOPHAGE XR PO SCH (09:00)
[2018-12-11] MEDS ORDERED: MEROPENEM INJ 1 GM in APPROPRIATE DILUENT 1 EA IV SCH (09:30)
[2018-12-11] MEDS ORDERED: NS 1,000 ML IV SCH (09:30)
[2018-12-11] MEDS ORDERED: cefTRIAXone SOD 1 GM in D5W MINI-BAG PLUS 50 ML IV SCH (10:00)
[2018-12-11] MEDS: NS 1,000 ML IV SCH ×2 (10:33→18:25)
[2018-12-11] MEDS: MECLIZINE 25 MG TABLET PO PRN (13:38)
[2018-12-11] MEDS: HumaLOG INSULIN (NovoLOG) PER UNIT SC SCH ×3 (13:39→20:34)
[2018-12-11 14:00] VITALS: BP 116/58
--- NOTE | 2018-12-11 14:28 | IPNPDOC ---
Text Note Date of Service The patient was seen on 12/11/18. NOTE SUBJECTIVE: Patient admitted this morning, no H/P available. Per nursing staff and Dr. Montero's note, patient was going to be discharged but became weak as he was getting ready to leave so family uncomfortable taking the patient home so he was admitted. The patient states he had a right hip arthroplasty in early October and following the surgery he was having difficulties urinating so he had a sanchez catheter for 2 weeks following this. For the past 48-72 hours he has had i ncreasing weakness, subjective fevers, chills, and some dysuria causing him to present to the emergency department. While there his UA was found to be positive. OBJECTIVE: PHYSICAL EXAM: Vitals: (see below) General: 77 year old male who appears stated age with visible shivering while in bed and difficulty forming words as a result in mild distress. HEENT: Normocephalic, atraumatic. EOMI. No scleral icterus. Moist mucous membranes. Cardiac: RRR, Normal S1 and S2, No murmurs, gallops, rubs. Pulm: Clear to auscultation b/l. Symmetric thorax. No wheezing, crackles, rhonchi Abd: Bowel Sounds present. Abdomen is soft, non-tender, non-distended. No guarding, rebound tenderness, or rigidity. Ext: No edema or cyanosis Skin: R-hip arthroplasty scar C/D/I with no palpable crepitus. Skin was warm throughout, but dry. Neuro: No focal neuro deficits. AOx3. Speaking appropriately. LABORATORY DATA, MICROBIOLOGY: Please see below. IMAGING STUDIES: 12/10/18 CXR: No evidence for acute pulmonary disease 12/10/[address]: No CT evidence for acute intracranial abnormality 12/10/[address]: 1. No acute fracture or dislocation identified. 2. Postoperative and degenerative changes as described with probable multilevel spinal stenosis. The discs, neural foramina and spinal canal could be better evaluated by means of MRI as clinically appropriate. ASSESSMENT AND PLAN: #. Complicated UTI - By nature of him being male and his recent history of indwelling catheter this qualifies as a complicated UTI. Starting patient on IV ceftriaxone with normal saline. Patient continues to make urine. Patient has Tylenol for fevers/pain. Rigors will hopefully be relieved with Tylenol, blankets, and if need be a K- pad. - Procalcitonin elevation is not clinically significant in the setting of urinary tract infection and should be used to help de-escalate antibiotic therapy in the setting of pneumonia. I have no clinical evidence or suspicion for pneumonia. #. lactic acidosis - May be secondary to urinary tract infection, but suspect likely mixed type A/B lactic acidosis as patient is also on metformin for his diabetes. Metformin discontinued. - Increased IV maintenance fluids for patient. Will continue to monitor. #.Type II diabetes -Sliding scale insulin coverage. #.Hypertension -Continue Lisinopril, holding parameters in place #. Urinary retention -Continue flomax and finasteride #. Dyslipidemia -Continue atorvastatin #. GERD -Continue mylanta #. Vitamin D deficiency -Patient can resume this after discharge, will discontinue for time being. #.Restless leg syndrome -Continue ropinorole #. Dizziness -Ok to continue meclizine PRN DVT prophylaxis: SQ heparin DISPOSITION: Pending clinical improvement VS,Osiel, I+O VS, Osiel, I+O Laboratory Tests 12/10/18 19:34 Red Blood Count 3.69 L, Mean Corpuscular Volume 94.9, Mean Corpuscular Hemoglobin 30.4, Mean Corpuscular Hemoglobin Concent 32.0, Red Cell Distribution Width 14.2, Neutrophils (%) (Auto) 77.1 H, Lymphocytes (%) (Auto) 15.7 L, Monocytes (%) (Auto) 6.5 H, Eosinophils (%) (Auto) 0.0, Basophils (%) (Auto) 0.1, Neutrophils # (Auto) 8.4, Lymphocytes # (Auto) 1.7, Monocytes # (Auto) 0.7, Eosinophils # (Auto) 0.0, Basophils # (Auto) 0.0, Calcium Level 9.4, Aspartate Amino Transf (AST/SGOT) 10, Alanine Aminotransferase (ALT/SGPT) 13, Total Creatine Kinase 70, Alkaline Phosphatase 99, Total Bilirubin 0.9, Total Protein 6.5, Albumin 3.4 12/11/18 08:06 Red Blood Count 3.60 L, Mean Corpuscular Volume 96.1 H, Mean Corpuscular He moglobin 30.6, Mean Corpuscular Hemoglobin Concent 31.8 L, Red Cell Distribution Width 14.1, Calcium Level 9.5, Aspartate Amino Transf (AST/SGOT) 12, Alanine Aminotransferase (ALT/SGPT) 16, Alkaline Phosphatase 93, Total Bilirubin 0.8, Total Protein 6.7, Albumin 3.2 Vital Signs Date Time Temp Pulse Resp B/P (MAP) Pulse Ox O2 Delivery O2 Flow Rate FiO2 12/11/18 08:45 138/85 12/11/18 06:00 97.0 76 18 97 12/11/18 05:39 Room Air I&O- Last 24 Hours up to 6 AM 12/11/18 06:00 Intake Total 1000 ml Output Total 700 ml Balance 300 ml GME ATTESTATION GME ATTESTATION My faculty preceptor for this patient encounter was physically present during the encounter and was fully available. All aspects of the patient interview, examination, medical decision making process, and medical care plan development were reviewed and approved by the faculty preceptor. The faculty preceptor is aware and concurs with the plan as stated in the body of this note and will attest to such by his/her cosignature. ATTENDING NOTE I, Keegan Cedillo, have independently examined this patient and performed my own physical exam, as well as reviewed the documentation and edited where necessary. I have discussed in detail with the resident / student the findings and plan of treatment as documented by the resident / student and edited their note. I agree with their findings and treatment plan and have edited their documentation. I will continue to follow the patient during this hospital stay. BEATRIZ SIEGEL DO Dec 11, 2018 14:28 KEEGAN CEDILLO MD Dec 11, 2018 15:56
[2018-12-11] MEDS: rOPINIRole 1MG TAB PO SCH ×2 (18:25→20:53)
[2018-12-11 19:05] VITALS: BP 128/60
[2018-12-11 20:50] VITALS: BP 130/50
[2018-12-12] MEDS: NS 1,000 ML IV SCH (01:15)
[2018-12-12] MEDS: ACETAMINOPHEN TAB 650MG DOSE (2X325MG) PO PRN ×4 (03:42→20:59)
[2018-12-12] MEDS: HEPARIN SOD (PORCINE) 5000 UNITS/ML VIAL SC SCH ×3 (05:34→20:56)
[2018-12-12 05:40] VITALS: BP 124/58
--- NOTE | 2018-12-12 05:51 | HPEPDOC ---
General Date of Admission Dec 10, 2018 at 18:54 Date of Service: Dec 11, 2018 Attending Physician: JIM SCHWAB DO Chief Complaint The patient is a 77-year-old male admitted with a reason for visit of Acute Uti, Lightheaded. 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 His initial temperature was 101. He was given acetaminophen by mouth, labs taken, and head CT without contrast. He has significant medical history of recent left total hip replacement, spinal stenosis, diabetes mellitus type 2, insulin-dependent, essential hypertension, hematuria, restless leg syndrome, chronic anemia, and BPH. Patient was cleared to go home and started on by mouth antibiotics, Keflex 500 mg by mouth twice a day however, upon standing, he became lightheaded again and even her return and was taken at 102. Patient will be admitted Med-Surg unit observation for further evaluation with hospitalist group. Home Medications Scheduled Atorvastatin Calcium (Atorvastatin Calcium) 20 Mg Tablet, 20 MG PO QHS, (Reported) Ergocalciferol (Vitamin D2) (Vitamin D2) 50,000 Unit Capsule, 50,000 UNIT PO Q2WK, (Reported) 1ST AND 15TH OF MONTH Finasteride (Proscar) 5 Mg Tablet, 5 MG PO QHS, (Reported) Lisinopril (Lisinopril) 10 Mg Tablet, 10 MG PO DAILY, (Reported) STOPPED TAKING FOR A WEEK Metformin HCl (Metformin HCl ER) 500 Mg Tab.er.24h, 1,000 MG PO BID, (Reported) [place]-3 Acid Ethyl Esters (Lovaza) 1 Gm Capsule, 2 CAP PO BID, (Reported) Ropinirole HCl (Ropinirole HCl) 1 Mg Tablet, 2 MG PO BID, (Reported) DINNER AND BEDTIME Tamsulosin HCl (Flomax) 0.4 Mg Capsule, 0.4 MG PO QHS, (Reported) Scheduled PRN Meclizine HCl (Meclizine HCl) 25 Mg Tablet, 25 MG PO TID PRN for DIZZINESS, (Reported) Oxycodone HCl (Oxycodone HCl) 5 Mg Tablet, 5 MG PO QID PRN for PAIN, (Reported) Allergies Coded Allergies: ibuprofen (Verified Allergy, Intermediate, HANDS SWELLING, ITCHING, 12/10/18) gabapentin (Verified Adverse Reaction, Intermediate, SEVERE IRRITABILITY/DEPRESSION, 12/10/18) Past Medical History Medical History See HPI Surgical History Tonsillectomy, Left Total Hip Replacement (2019), [place] Family History Significant Family History: No pertinent family hx Social History * Smoker: Denies Alcohol: occationally Drugs: denies Recent Travel/Sick Contacts: Denies: Recent travel, Recent sick contacts Psychosocial History: Decreased mood, [place] SI and HI, Other (Brother earlier today) A-FIB/CHADSVASC A-FIB History Current/History of A-Fib/PAF?: No Review of Systems Constitutional: Reports: Fever, Malaise, Fatigue Eyes: Reports: Pain; Denies: Vision change, Conjunctivae inflammation, Eyelid inflammation, Redness, Other ENT: Denies: Head Aches, Ear Pain, Dysphagia Skin: Denies: Rash, Lesions, Jaundice, Bruising, Itching, Dry, Breakdown, Nail Changes, Other Pulmonary: Denies: Dyspnea, Cough, Pleuritic Chest Pain, Other Symptoms Cardiovascular: Reports: Lt Headedness Gastrointestinal: Denies: Nausea, Vomiting, Abdominal Pain, Diarrhea, Constipation, Melena, Hematochezia, Other Symptoms Genitourinary: Denies: Dysuria, Frequency, Incontinence, Hematuria, Retention, Other Symptoms Hematologic: Denies: Bruising, Bleeding Excessively, Petecchia, Purpura, Enlarged Lymph Nodes, Other Hematologic Musculoskeletal: Reports: Joint Pain (Right hip 7/10 on scale 1/10) Neurological: Reports: Weakness Psych: Reports: Depression Physical Examination General Exam: Positive: Cooperative, No Acute Distress Eye Exam: Positive: PERRLA, Conjunctiva & lids normal ENT Exam: Positive: Atraumatic, Mucous membr. moist/pink, Pharynx Normal, Tongue Midline, Nares Patent Neck Exam: Positive: Supple, +2 carotid pulse wo bruit Chest Exam: Positive: Clear to auscultation, Normal air movement Heart Exam: Positive: Tachycardic, Regular Rhythm, Normal S2 Telemetry: Positive: Tachycardia Abdomen Exam: Positive: Normal bowel sounds, Soft Extremity Exam: Positive: Normal pulses Skin Exam: Positive: Nl turgor and temperature Neuro Exam: Positive: Cranial Nerves 3-12 NL Psych Exam: Positive: Oriented x 3, Other (drowsy, flat affect, depressed) Vital Signs Vital Signs Date Time Temp Pulse Resp B/P (MAP) Pulse Ox O2 Delivery O2 Flow Rate FiO2 12/12/18 00:55 99.0 12/11/18 20:50 104 26 130/50 (76) 96 12/11/18 05:39 Room Air Laboratory Data Labs 24H Laboratory Tests 2 12/11/18 08:06: Nucleated Red Blood Cells % (auto) 0.0, Anion Gap 9, Glomerular Filtration Rate > 60.0, Lactic Acid Level 3.0*H, Blood Urea Nitrogen 17, Creatinine 1.09, Sodium Level 140, Potassium Level 3.8, Chloride Level 105, Carbon Dioxide Level 26, Calcium Level 9.5, Aspartate Amino Transf (AST/SGOT) 12, Alanine Aminotransferase (ALT/SGPT) 16, Alkaline Phosphatase 93, Total Bilirubin 0.8, Total Protein 6.7, Albumin 3.2, Magnesium Level 1.9, Albumin/Globulin Ratio 0.91L, Procalcitonin 4.76 12/11/18 08:49: Bedside Glucose (Misc Panel) 128H 12/11/18 12:00: Bedside Glucose (Misc Panel) 246H 12/11/18 12:23: Lactic Acid Followup at 4 Hours 3.5*H 12/11/18 17:21: Bedside Glucose (Misc Panel) 106 12/11/18 20:32: Bedside Glucose (Misc Panel) 172H CBC/BMP Laboratory Tests 12/11/18 08:06 Red Blood Count 3.60 L, Mean Corpuscular Volume 96.1 H, Mean Corpuscular Hemoglobin 30.6, Mean Corpuscular Hemoglobin Concent 31.8 L, Red Cell Distribution Width 14.1, Calcium Level 9.5, Aspartate Amino Transf (AST/SGOT) 12, Alanine Aminotransferase (ALT/SGPT) 16, Alkaline Phosphatase 93, Total Bilirubin 0.8, Total Protein 6.7, Albumin 3.2 Microbiology Microbiology 12/10/18 Blood Culture - Preliminary, Resulted No growth after 24 hours . All specim... 12/10/18 Blood Culture - Preliminary, Resulted No growth after 24 hours . All specim... 12/10/18 Urine Culture, Received Pending Echocardiogram EKG shows sinus tachycardia rate 104, IL interval 136, QRS duration 86, QT/QTc 300/360, PRT axis 58, 381, 44 RAD Interpretation STUDY: CT head neck without contrast negative for midline shift, acute changes and abnormalities. Shows postoperative changes and degenerative changes and spinal stenosis Assessment/Plan 77-year-old male arrived at [facility] ED with his complaining of fever, dizziness, malaise, weakness at home when he suffered a mechanical fall, striking his head on the floor. His initial temperature was 101. He was given acetaminophen 975 mg by mouth, 1 L bolus normal saline, urinalysis, labs taken, CK less than 1, Troponin less than 0.[address] without contrast.. Urinalysis shows acute UTI, positive for leukocytes, leukocyte esterase, nitrites, WBCs, and RBCs. Acute UTIacute. Encourage oral intake of water Acetaminophen 650 mg by mouth every 4 hours as needed for pain1-3/fever, acetaminophen/hydrocodone 5325 mg one by mouth every 6 hours as needed for pain. 410 Monitor I&O. Continue Keflex 500 mg by mouth twice a day Urine culture and blood cultures sent, pending. CBC, CMP, lactic acid Lightheadedness/dizzinessacute Rise slowly from lying to sitting to standing. PT/OT to evaluate and treat, gait Meclizine 25 mg 1 by mouth 3 times a day as needed Essential hypertensionchronic Monitor blood pressure every shift. No salt diet, carbohydrate monitored appropriately diet. Repeat EKG Continue lisinopril 10 mg by mouth daily BPHchronic. Continue Flomax 0.4 mg by mouth daily, Proscar 5 mg by mouth daily at bedtime Restless leg syndromechronic. Continue Requip 2 mg by mouth twice a day Hyperlipidemiachronic. Fasting lipid panel, Continue atorvastatin 20 mg by mouth daily Diabetes mellitus type 2 insulin-dependentchronic. POC glucose before meals and at bedtime Hemoglobin A1c Hypoglycemia protocol. Sliding scale insulin, lispro before meals and at bedtime Continue metformin 1000 mg by mouth twice a day, monitor creatinine and EGFR Prognosis: Good. DVT prophylaxis: Pharmaceuticalheparin 5000 IUs SC 3 times a day/SCDs bilateral lower extremities. Discharge: Pending Problems (1) Acute UTI (urinary tract infection) Plan / VTE VTE Prophylaxis Ordered?: Yes VTE Exclusion Mechanical Proph: Justin Lower Ex DVT Plan IVF: Initiate Diet: Continue Current Activity: Bedrest Therapy: PT, OT Medications: Bowel Regimen Respiratory: Pulse Ox on Room Air Diagnostics: Check Labs, Repeat Labs in AM, Obtain Cultures (sent blood and urine), Repeat EKG TONY ABREU Dec 12, 2018 02:37
[2018-12-12] MEDS: MECLIZINE 25 MG TABLET PO PRN (06:04)
[2018-12-12 07:33] LABS: MEAN CORPUSCULAR HEMOGLOBIN 30.5 pg (27.0-33.0); MEAN CORPUSCULAR VOLUME 95.4 fl (80.0-96.0); PLATELET COUNT, AUTOMATED 119 10^3/uL (150-450); RED BLOOD COUNT 2.62 10^6/uL (4.30-6.10); WHITE BLOOD COUNT 5.8 10^3/uL (4.0-10.0)
[2018-12-12 07:57] LABS: BLOOD UREA NITROGEN 22 MG/DL (7-18); CALCIUM LEVEL 8.2 MG/DL (8.8-10.2); CARBON DIOXIDE LEVEL 24 MEQ/L (21-32); CHLORIDE LEVEL 108 MEQ/L (98-107); CREATININE FOR GFR 0.95 MG/DL (0.70-1.30); GLOMERULAR FILTRATION RATE > 60.0 (>42); GLUCOSE, FASTING 165 MG/DL (70-100); POTASSIUM SERUM 3.5 MEQ/L (3.5-5.1); SODIUM LEVEL 140 MEQ/L (136-145)
[2018-12-12] MEDS: LISINOPRIL 10 MG TAB PO SCH ×2 (08:47→08:58)
[2018-12-12] MEDS: DOCUSATE SODIUM 100 MG CAP PO SCH ×2 (08:47→20:18)
[2018-12-12] MEDS: HumaLOG INSULIN (NovoLOG) PER UNIT SC SCH ×4 (08:48→20:22)
[2018-12-12 08:58] VITALS: BP 107/53
--- NOTE | 2018-12-12 10:28 | IPNPDOC ---
Text Note Date of Service The patient was seen on 12/12/18. NOTE SUBJECTIVE: Patient continued to have fevers overnight. This morning he states he feels better, but per his daughter he continues to have moments of transient confusion. he reports no urinary symptoms and denies any chest pain, difficulty breathing, nausea, or abdominal pain. OBJECTIVE: PHYSICAL EXAM: Vitals: (see below) General: 77 year old male sitting up in chair in no acute distress HEENT: Normocephalic, atraumatic. EOMI. No scleral icterus. Moist mucous membranes. Cardiac: RRR, Normal S1 and S2, No murmurs, gallops, rubs. Pulm: Clear to auscultation b/l. Symmetric thorax. No wheezing, crackles, rhonchi Abd: Bowel Sounds present. Abdomen is soft, non-tender, non-distended. No guarding, rebound tenderness, or rigidity. Ext: No edema or cyanosis Skin: R-hip arthroplasty scar C/D/I with no palpable crepitus. Skin was warm throughout, but dry. Neuro: No focal neuro deficits. AOx3. Speaking appropriately. LABORATORY DATA, MICROBIOLOGY: Please see below. IMAGING STUDIES: 12/10/18 CXR: No evidence for acute pulmonary disease 12/10/[address]: No CT evidence for acute intracranial abnormality 12/10/[address]: 1. No acute fracture or dislocation identified. 2. Postoperative and degenerative changes as described with probable multilevel spinal stenosis. The discs, neural foramina and spinal canal could be better evaluated by means of MRI as clinically appropriate. ASSESSMENT AND PLAN: #. Complicated UTI - Switching patient to PO cefdinir. Urine cultures pending. Blood cultures negative. continue to treat fevers with tylenol. - PT to evaluate patient today #. lactic acidosis - Resolved. #.Type II diabetes -Sliding scale insulin coverage. #.Hypertension -Continue Lisinopril, holding parameters in place #. Urinary retention -Continue flomax and finasteride #. Dyslipidemia -Continue atorvastatin #. GERD -Continue mylanta #. Vitamin D deficiency -Patient can resume this after discharge, will discontinue for time being. #.Restless leg syndrome -Continue ropinorole #. Vertigo -Continue meclizine PRN DVT prophylaxis: SQ heparin DISPOSITION: Pending clinical improvement VS,Fishbone, I+O VS, Fishbone, I+O Laboratory Tests 12/12/18 07:21 Red Blood Count 2.62 L, Mean Corpuscular Volume 95.4, Mean Corpuscular Hemoglobin 30.5, Mean Corpuscular Hemoglobin Concent 32.0, Red Cell Distribution Width 14.3, Calcium Level 8.2 L Vital Signs Date Time Temp Pulse Resp B/P (MAP) Pulse Ox O2 Delivery O2 Flow Rate FiO2 12/12/18 08:58 107/53 12/12/18 06:05 100.0 12/12/18 05:40 97 18 92 12/11/18 05:39 Room Air I&O- Last 24 Hours up to 6 AM 12/12/18 06:00 Intake Total 600 ml Balance 600 ml GME ATTESTATION GME ATTESTATION My faculty preceptor for this patient encounter was physically present during the encounter and was fully available. All aspects of the patient interview, examination, medical decision making process, and medical care plan development were reviewed and approved by the faculty preceptor. The faculty preceptor is aware and concurs with the plan as stated in the body of this note and will attest to such by his/her cosignature. ATTENDING NOTE I, Keegan Ivan, have independently examined this patient and performed my own physical exam, as well as reviewed the documentation and edited where necessary. I have discussed in detail with the resident / student the findings and plan of treatment as documented by the resident / student and edited their note. I agree with their findings and treatment plan and have edited their documentation. I will continue to follow the patient during this hospital stay. BEATRIZ SIEGEL DO Dec 12, 2018 10:28 KEEGAN IVAN MD Dec 12, 2018 14:24
[2018-12-12] MEDS: CEFDINIR 300 MG CAP (OMNICEF) PO SCH ×2 (10:38→20:59)
[2018-12-12 14:00] VITALS: BP 114/56
[2018-12-12] MEDS: rOPINIRole 1MG TAB PO SCH ×2 (17:16→20:57)
[2018-12-12] MEDS: FINASTERIDE 5 MG TAB PO SCH (21:00)
[2018-12-12] MEDS ORDERED: MUPIROCIN 2% OINT 22 GM TUBE TOP SCH (21:00)
[2018-12-12] MEDS: TAMSULOSIN 0.4 MG CAP PO SCH (21:01)
[2018-12-12] MEDS: ATORVASTATIN 20 MG TAB PO SCH (21:01)
[2018-12-12 22:00] VITALS: BP 116/56
[2018-12-13] MEDS: HEPARIN SOD (PORCINE) 5000 UNITS/ML VIAL SC SCH (05:36)
[2018-12-13 06:00] VITALS: BP 159/66
[2018-12-13 07:10] LABS: HEMATOCRIT 27.1 % (42.0-52.0); HEMOGLOBIN 8.6 g/dl (13.5-17.5); MEAN CORPUSCULAR HEMOGLOBIN 29.6 pg (27.0-33.0); MEAN CORPUSCULAR HGB CONC 31.7 g/dl (32.0-36.5); MEAN CORPUSCULAR VOLUME 93.1 fl (80.0-96.0); PLATELET COUNT, AUTOMATED 137 10^3/uL (150-450); RED BLOOD COUNT 2.91 10^6/uL (4.30-6.10)
[2018-12-13 07:38] LABS: BLOOD UREA NITROGEN 15 MG/DL (7-18); CALCIUM LEVEL 8.6 MG/DL (8.8-10.2); CARBON DIOXIDE LEVEL 27 MEQ/L (21-32); CHLORIDE LEVEL 108 MEQ/L (98-107); CREATININE FOR GFR 0.85 MG/DL (0.70-1.30); GLOMERULAR FILTRATION RATE > 60.0 (>42); GLUCOSE, FASTING 146 MG/DL (70-100); POTASSIUM SERUM 3.3 MEQ/L (3.5-5.1); SODIUM LEVEL 141 MEQ/L (136-145)
[2018-12-13] MEDS ORDERED: POTASSIUM CHLORIDE 10 MEQ SR TABLET PO ONE (08:30)
[2018-12-13] MEDS: LISINOPRIL 10 MG TAB PO SCH ×2 (08:34→08:37)
[2018-12-13] MEDS: CEFDINIR 300 MG CAP (OMNICEF) PO SCH (08:34)
[2018-12-13] MEDS: HumaLOG INSULIN (NovoLOG) PER UNIT SC SCH (08:35)
[2018-12-13] MEDS: DOCUSATE SODIUM 100 MG CAP PO SCH (08:35)
[2018-12-13 08:36] VITALS: BP 149/67
[2018-12-13] MEDS ORDERED: ACET1TAB55 PO (08:45)
[2018-12-13] MEDS ORDERED: CEFD300CAP PO (08:45)
[2018-12-13 08:59] LABS: FERRITIN 486 NG/ML (26-388); IRON (FE) 10 UG/DL (65-175); TOTAL IRON BINDING CAPACITY 167 UG/DL (250-450)
[2018-12-13] MEDS ORDERED: FERR325T88 PO (09:18)
--- NOTE | 2018-12-13 10:15 | REP ---
REASON: Pain after trauma. COMPARISON: None. There is AC joint DJD with asymmetric joint space narrowing and slight marginal osteophytosis. The glenohumeral relationship is within normal limits. There is no fracture, dislocation, or subluxation. IMPRESSION: Chronic changes, as described above. Electronically Signed by Daniel Gómez DO 12/13/2018 11:23 A
--- NOTE | 2018-12-13 11:24 | DS.PDOC ---
Discharge Summary General Date of Admission Dec 11, 2018 at 05:05 Date of Discharge 12/13/18 Primary Care Physician: Erlinda Rainey DO [facility] Attending Physician: KEEGAN IVAN MD Discharge Summary PROCEDURES PERFORMED DURING STAY: [None]. ADMITTING/DISCHARGE DIAGNOSES: UTI Type 2 diabetes Hypertension BPH Restless leg syndrome Dyslipidemia COMPLICATIONS/CHIEF COMPLAINT: weakness, fall HISTORY OF PRESENT ILLNESS/HOSPITAL COURSE: Patient presented to [facility] emergency department with chief complaints of fever, chills, weakness, malaise after falling at home and striking his head on the floor. Initial workup in the emergency department for trauma was negative, however his UA was positive. He initially was going to be discharged home with antibiotics however became too weak and his family wanted him to be admitted for further care. He was started on IV antibiotics, maintenance fluids, and Tylenol for fevers. He experienced continued fevers for the first 24 hours so he was kept an additional night for monitoring. On day 2 of his hospital stay he was transitioned to oral antibiotics and began working with physical therapy. He experienced no febrile episodes overnight and physical therapy recommended he be discharged home with services. Urine culture sensitivities came back positive for Enterobacter cloacae so he was continued with oral cefdinir. On day of discharge he had a low hemoglobin which was thought to be secondary to dilution after receiving 3 L of fluid. An iron panel showed low iron so he was also started on oral iron supplementation. He was also complaining of right shoulder pain from his fall 2 days prior social or x-ray was ordered that was negative for any fractures, so he was subsequently discharged home with antibiotics. DISCHARGE MEDICATIONS: Please see below. ALLERGIES: Please see below. Vitals: (see below) General: No acute distress, laying comfortably in bed. HEENT: Normocephalic, atraumatic. EOMI. No scleral icterus. Moist mucous membranes. No pharyngeal erythema or uvular deviation. Neck: No JVD, lymphadenopathy, or thyromegaly. Cardiac: RRR, Normal S1 and S2, No murmurs, gallops, rubs. Pulm: Clear to auscultation b/l. Symmetric thorax. No wheezing, crackles, rhonchi Abd: Bowel Sounds present. Abdomen is soft, non-tender, non-distended. No guarding, rebound tenderness, or rigidity. No hepatosplenomegaly. No masses or eccymosis. Ext: No edema or cyanosis Skin: No skin changes Neuro: No focal neuro deficits Psych: Appropriate affect LABORATORY DATA: Please see below. IMAGIN12/10/18 chest x-ray: No evidence for acute pulmonary disease 12/10/[address]: No CT evidence for acute intracranial abnormality 12/10/[address]: 1. No acute fracture or dislocation identified. 2. Postoperative and degenerative changes as described with probable multilevel spinal stenosis. The discs, neural foramina and spinal canal could be better evaluated by means of MRI as clinically appropriate. 12/13/18 shoulder x-ray: There is AC joint DJD with asymmetric joint space narrowing and slight marginal osteophytosis. The glenohumeral relationship is within normal limits. There is no fracture, dislocation, or subluxation. Chronic changes, as described above PROGNOSIS: Good ACTIVITY: [As tolerated]. DIET: Consistent carbohydrates DISCHARGE PLAN: Discharge home with services DISCHARGE INSTRUCTIONS: 1. His follow-up with her primary care provider in the next 7-10 days 2. Please complete course of oral antibiotics. 3. Please start taking the oral iron supplements every other day. 4. Please continue to work with physical therapy outpatient. 5. Return to the ER if you experience any problems DISCHARGE CONDITION: [Stable]. TIME SPENT ON DISCHARGE: 32 minutes. Vital Signs/I&Os Vital Signs Date Time Temp Pulse Resp B/P (MAP) Pulse Ox O2 Delivery O2 Flow Rate FiO2 12/13/18 08:36 79 149/67 (94) 12/13/18 06:00 97.7 20 98 12/11/18 05:39 Room Air I&O- Last 24 Hours up to 6 AM0 12/13/18 06:00 Intake Total 1740 ml Output Total 900 ml Balance 840 ml Laboratory Data Labs 24H Laboratory Tests 2 12/12/18 11:33: Bedside Glucose (Misc Panel) 191H 12/12/18 16:59: Bedside Glucose (Misc Panel) 206H 12/12/18 19:33: Bedside Glucose (Misc Panel) 128H 12/13/18 06:48: Reticulocyte # (auto) 22.1, Nucleated Red Blood Cells % (auto) 0.0, Percent Reti culocyte Count 0.8, Reticulocyte Hemoglobin Equivalent 22.5L, Anion Gap 6L, Glomerular Filtration Rate > 60.0, Blood Urea Nitrogen 15, Creatinine 0.85, Sodium Level 141, Potassium Level 3.3L, Chloride Level 108H, Carbon Dioxide Level 27, Calcium Level 8.6L, Iron Level 10L, Total Iron Binding Capacity 167L, Transferrin % Saturation 6.0L, Ferritin 486H CBC/BMP Laboratory Tests 12/13/18 06:48 Red Blood Count 2.91 L, Mean Corpuscular Volume 93.1, Mean Corpuscular Hemoglobin 29.6, Mean Corpuscular Hemoglobin Concent 31.7 L, Red Cell Distribution Width 14.2, Calcium Level 8.6 L FSBS Laboratory Tests Test 12/12/18 11:33 12/12/18 16:59 12/12/18 19:33 Range/Units Bedside Glucose (Misc Panel) 191 206 128 83-110 MG/DL Microbiology Microbiology 12/10/18 Blood Culture - Preliminary, Resulted No Growth after 48 hours. All Specime... 12/10/18 Blood Culture - Preliminary, Resulted No Growth after 48 hours. All Specime... 12/10/18 Urine Culture - Final, Complete Enterobacter Cloacae Complex Discharge Medications Scheduled Atorvastatin Calcium (Atorvastatin Calcium) 20 Mg Tablet, 20 MG PO QHS, (Reported) Cefdinir (Cefdinir) 300 Mg Capsule, 300 MG PO BID Please take 1 tablet by mouth in the morning and 1 tablet by mouth in the evening with last dose the evening of 12/21/18. Ergocalciferol (Vitamin D2) (Vitamin D2) 50,000 Unit Capsule, 50,000 UNIT PO Q2WK, (Reported) AND 15TH OF MONTH Ferrous Sulfate (Ferrousul) 325 Mg Tablet, 1 TAB PO every other day Please take one tablet every other day. Finasteride (Proscar) 5 Mg Tablet, 5 MG PO QHS, (Reported) Lisinopril (Lisinopril) 10 Mg Tablet, 10 MG PO DAILY, (Reported) STOPPED TAKING FOR A WEEK Metformin HCl (Metformin HCl ER) 500 Mg Tab.er.24h, 1,000 MG PO BID, (Reported) [place]-3 Acid Ethyl Esters (Lovaza) 1 Gm Capsule, 2 CAP PO BID, (Reported) Ropinirole HCl (Ropinirole HCl) 1 Mg Tablet, 2 MG PO BID, (Reported) DINNER AND BEDTIME Tamsulosin HCl (Flomax) 0.4 Mg Capsule, 0.4 MG PO QHS, (Reported) Scheduled PRN Acetaminophen (Acetaminophen) 325 Mg Tablet, 650 MG PO Q4H PRN for PAIN OR FEVER Please take 2 tablets by mouth every four hours for pain or fever Meclizine HCl (Meclizine HCl) 25 Mg Tablet, 25 MG PO TID PRN for DIZZINESS, (Reported) Oxycodone HCl (Oxycodone HCl) 5 Mg Tablet, 5 MG PO QID PRN for PAIN, (Reported) Allergies Coded Allergies: ibuprofen (Verified Allergy, Intermediate, HANDS SWELLING, ITCHING, 12/10/18) gabapentin (Verified Adverse Reaction, Intermediate, SEVERE IRRITAB ILITY/DEPRESSION, 12/10/18) GME ATTESTATION GME ATTESTATION My faculty preceptor for this patient encounter was physically present during the encounter and was fully available. All aspects of the patient interview, examination, medical decision making process, and medical care plan development were reviewed and approved by the faculty preceptor. The faculty preceptor is aware and concurs with the plan as stated in the body of this note and will attest to such by his/her cosignature. ATTENDING NOTE I, Keegan Ivan, have independently examined this patient and performed my own physical exam, as well as reviewed the documentation and edited where necessary. I have discussed in detail with the resident / student the findings and plan of treatment as documented by the resident / student and edited their note. I agree with their findings and treatment plan and have edited their documentation. I will continue to follow the patient during this hospital stay. Time spent on discharge - 33 minutes BEATRIZ SIEGEL DO Dec 13, 2018 11:24 KEEGAN IVAN MD Dec 13, 2018 14:26
[2018-12-14] MEDS ORDERED: VITAMIN D 50,000 UNITS CAPSULE (ERGOCALCIFEROL 1.25MG) PO SCH (09:00)
== END 2018-12-13 11:40 | disposition home or self-care (01) ==
LOC: M ED 18:53 → M ED INP 18:54 → M ED 23:36 → M MS4PR 12-11 05:58
PROVIDERS: ADMIT Internal Medicine; ATTEND Internal Medicine
DX: N39.0 Urinary tract infection, site not specified (principal); E11.9 Type 2 diabetes mellitus without complications; I10 Essential (primary) hypertension; N40.0 Benign prostatic hyperplasia without lower urinary tract symptoms; G25.81 Restless legs syndrome; E78.49 Other hyperlipidemia; Z79.899 Other long term (current) drug therapy; Z88.8 Allergy status to other drugs, medicaments and biological substances; M25.511 Pain in right shoulder; Z91.81 History of falling
CPT/HCPCS: 36415; 70450; 71046; 72125; 73030; 80048; 80053; 81001; 82550; 82553; 82728; 83550; 83605; 83735; 84145; 84484; 85025; 85027; 85046; 87040; 87088; 87186; 87502; 93005; 93041; 94760; 96361; 96372; 96374; 97116; 97161; 99285; G0378; J0696

== ENCOUNTER 2019-08-20 21:40 | Emergency (ER) | payer MEDICARE ==
[~2019-08-20] VITALS: Ht 172.7 cm; Wt 82.1 kg
[~2019-08-20 21:40] MED LIST changes: +ACET1TAB55 PO; +CEFD300CAP PO; +FERR325T88 PO; +KEFL500C17 PO; -METF-791 PO; +METF-838 PO; -ROPI1TAB PO; +ROPI1TAB3 PO
[2019-08-20] MEDS ORDERED: BACT800T5 PO (21:55)
[2019-08-20 22:38] LABS: HEMATOCRIT 42.4 % (42.0-52.0); HEMOGLOBIN 13.6 g/dl (13.5-17.5); MEAN CORPUSCULAR HGB CONC 32.1 g/dl (32.0-36.5); MEAN CORPUSCULAR VOLUME 87.2 fl (80.0-96.0); PLATELET COUNT, AUTOMATED 213 10^3/uL (150-450); RED BLOOD COUNT 4.86 10^6/uL (4.30-6.10); WHITE BLOOD COUNT 8.9 10^3/uL (4.0-10.0)
[2019-08-20 22:53] LABS: CALCIUM LEVEL 9.9 MG/DL (8.8-10.2); CREATININE FOR GFR 1.33 MG/DL (0.70-1.30); GLOMERULAR FILTRATION RATE 55.7 (>42); POTASSIUM SERUM 5.1 MEQ/L (3.5-5.1)
[2019-08-20] MEDS ORDERED: PYRI1TAB5 PO (23:07)
[2019-08-20] MEDS ORDERED: CIPR-249 PO (23:07)
[2019-08-20] MEDS: PHENAZOPYRIDINE 100 MG TAB PO ONE (23:26)
[2019-08-20] MEDS: CIPROFLOXACIN 500MG TABLET PO ONE (23:26)
[2019-08-20 23:27] VITALS: BP 173/79
== END 2019-08-20 23:28 | disposition home or self-care (01) ==
LOC: M ED 21:40
DX: N34.1 Nonspecific urethritis (principal); N41.0 Acute prostatitis; I25.10 Atherosclerotic heart disease of native coronary artery without angina pectoris; E11.9 Type 2 diabetes mellitus without complications; I10 Essential (primary) hypertension; F41.9 Anxiety disorder, unspecified; F32.9 Major depressive disorder, single episode, unspecified; Z85.46 Personal history of malignant neoplasm of prostate; Z88.6 Allergy status to analgesic agent; Z88.8 Allergy status to other drugs, medicaments and biological substances; Z87.891 Personal history of nicotine dependence; Z79.84 Long term (current) use of oral hypoglycemic drugs; Z79.899 Other long term (current) drug therapy

== ENCOUNTER 2020-02-22 09:48 | Emergency (ER) | payer MEDICARE ==
[~2020-02-22] VITALS: Ht 172.7 cm; Wt 84.4 kg
[~2020-02-22 09:48] MED LIST changes: +BACT800T5 PO; +CIPR-249 PO; +PYRI1TAB5 PO
[2020-02-22 12:30] VITALS: BP 175/82
== END 2020-02-22 12:30 | disposition home or self-care (01) ==
LOC: M ED 09:48
DX: T83.098A Other mechanical complication of other urinary catheter, initial encounter (principal); R31.9 Hematuria, unspecified; E11.9 Type 2 diabetes mellitus without complications; I10 Essential (primary) hypertension; E78.5 Hyperlipidemia, unspecified; Z79.1 Long term (current) use of non-steroidal anti-inflammatories (NSAID); Z79.84 Long term (current) use of oral hypoglycemic drugs; Z79.899 Other long term (current) drug therapy; Z88.6 Allergy status to analgesic agent; Z88.8 Allergy status to other drugs, medicaments and biological substances

== ENCOUNTER 2020-02-23 23:32 | Inpatient (IN) | payer MEDICARE ==
[~2020-02-23] VITALS: Ht 172.7 cm; Wt 83.6 kg
[2020-02-24] VITALS (11 sets, daily range): BP systolic 142–188; BP diastolic 60–85
--- NOTE | 2020-02-24 01:39 | HPEPDOC ---
[facility] Medical History & Physical Date of Admission Feb 24, 2020 Date of Service: Feb 24, 2020 Primary Care Physician: MANAS GREEN MD Attending Physician: DAVE CABRAL MD History and Physical TIME OF SERVICE: 3:30 AM CHIEF COMPLAINT: Blood in urinary catheter HISTORY OF PRESENT ILLNESS: This 79-year-old gentleman presented to [facility] with complaints of blood in his urinary catheter. He has a history of BPH with LUTS. He had a Cash catheter placed on February 16 at [facility], was treated for UTI, and discharged on February 19 with the catheter still in place. He presented here to [facility] on February 20 with complaints of hematuria and recurrence of clots in his Catheter. The catheter was flushed and he was discharged home from the ER but on the evening of February 22, he returned to [facility] with complaints of discomfort due to the Cash along with blood clots in the tubing and was diagnosed with pansensitive Escherichia coli UTI. He was transferred to [facility] for Urological evaluation. Based on the notes from [facility] his hemoglobin 10.5. 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 FAMILY HISTORY: Father had colon cancer Mother had diabetes and coronary artery disease Brother had diabetes, CAD, dyslipidemia and hypertension. Brother had prostate and penile cancer ALLERGIES: Please see below. HOME MEDICATIONS: Please see below. PHYSICAL EXAMINATION: Vital Signs Date Time Temp Pulse Resp B/P (MAP) Pulse Ox O2 Delivery O2 Flow Rate FiO2 02/24/20 01:30 98.6 86 20 155/71 (99) 98 Room Air 02/24/20 08:15 2 GEN: well-nourished / well developed/ anxious because of severe pain INTEGUMENT: slightly flushed/ doesn't have generalized pallor HEENT: lips acyanotic /mucus membranes moist and pink CVS: RRR/NMRG/ no lower extremity edema LUNGS: able to speak full sentences without stopping to take a breath / lungs are clear to auscultation bilaterally on room air ABDOMEN: Contour ( distended) & firm with palpation MSK/EXTREMITIES: NCAT / range of motion intact in all 4 extremities NEURO: CN 2-12 are grossly intact / speech is not dysarthric PSYCH: alert and oriented to person place and time/ able to understand and follow all commands LABORATORY DATA: 02/24/20 10:52 02/24/20 19:37 MICROBIOLOGY: COVID 19 neg ASSESSMENT: Mr. Daniel is a 79-year-old with a history of BPH, HTN, IDDM, dyslipidemia R LS and multiple surgeries including history of cystoscopy without findings of malignancy who presented to [facility] with complaints of severe pain, and gross hematuria with clots in his Cash; he was transferred to [facility] for urological evaluation. PLAN: 1. Hematuria Plan: Admit to medical floor /NPO/ IVF/ dilaudid PRN (morphine was not effective in managing his pain)/ f/u hemoglobin, iron panel, type and screen 2 . UTI Plan: Discontinue Bactrim and start IV ceftriaxone 3. BPH with LUTS Plan: Cash, finasteride, tamsulosin 4. NIDDM Plan: f/u accuchecks & A1C / hypoglycemia protocol / sliding scale insulin / hold oral anti-glycemics 5. Chronic HTN Plan: Lisinopril 6. RLS Plan: Ropinirole DVT PROPHYLAXIS: TEDs and sequentials DISPOSITION: home after more than 2 midnight's stay Home Medications Scheduled Atorvastatin Calcium (Atorvastatin Calcium) 20 Mg Tablet, 20 MG PO QHS Ergocalciferol (Vitamin D2) (Vitamin D2) 50,000 Units Cap, 50,000 UNITS PO Q2WK AROUND THE AND THE 15TH OF EACH MONTH Finasteride (Proscar) 5 Mg Tablet, 5 MG PO QHS Lisinopril (Lisinopril) 10 Mg Tablet, 10 MG PO DAILY Metformin HCl (Metformin HCl ER) 500 Mg Tab.er.24h, 1,000 MG PO BID [place]-3 Acid Ethyl Esters (Lovaza) 1 Gm Capsule, 2 CAP PO BID Pantoprazole Sodium (Pantoprazole Sodium) 40 Mg Tablet.dr, 40 MG PO DAILY Ropinirole HCl (Ropinirole HCl) 1 Mg Tablet, 2 MG PO BID DINNER AND BEDTIME Sulfamethoxazole/Trimethoprim (Bactrim Ds Tablet) 1 Each Tablet, 1 TAB PO BID STARTED ON 02/20/2020 Tamsulosin HCl (Flomax) 0.4 Mg Capsule, 0.4 MG PO QHS Scheduled PRN Meclizine HCl (Meclizine HCl) 25 Mg Tablet, 25 MG PO TID PRN for DIZZINESS Allergies Coded Allergies: ibuprofen (Verified Allergy, Intermediate, HANDS SWELLING, ITCHING, 12/10/18) gabapentin (Verified Adverse Reaction, Intermediate, SEVERE IRRITABILITY/DEPRESSION, 12/10/18) A-FIB/CHADSVASC A-FIB History Current/History of A-Fib/PAF?: No Current PO Anticoag Therapy: No DAVE CABRAL MD Feb 24, 2020 01:39
[2020-02-24] MEDS ORDERED: GLUCAGON INJ 1MG VIAL SC PRN (01:45)
[2020-02-24] MEDS ORDERED: DEXTROSE 50% 50 ML SYRINGE IV PRN (01:45)
[2020-02-24] MEDS ORDERED: GLUCOSE 4GM CHEW TABLET PO PRN (01:45)
[2020-02-24] MEDS ORDERED: MOM 30ML SUSPENSION UDC PO PRN (01:45)
[2020-02-24] MEDS ORDERED: MAALOX 30 ML SUSP *UDC PO PRN (01:45)
[2020-02-24 02:04] LABS: HEMATOCRIT 30.9 % (42.0-52.0); HEMOGLOBIN 9.7 g/dl (13.5-17.5); MEAN CORPUSCULAR HEMOGLOBIN 27.9 pg (27.0-33.0); MEAN CORPUSCULAR HGB CONC 31.4 g/dl (32.0-36.5); MEAN CORPUSCULAR VOLUME 88.8 fl (80.0-96.0); PLATELET COUNT, AUTOMATED 243 10^3/uL (150-450); RED BLOOD COUNT 3.48 10^6/uL (4.30-6.10); WHITE BLOOD COUNT 7.9 10^3/uL (4.0-10.0)
[2020-02-24 02:15] LABS: INR 1.03; PROTHROMBIN TIME 13.7 SECONDS (12.5-14.3)
[2020-02-24 02:16] LABS: PARTIAL THROMBOPLASTIN TIME 26.9 SECONDS (24.2-38.5)
[2020-02-24 02:40] LABS: ALBUMIN 2.7 GM/DL (3.2-5.2); BILIRUBIN,TOTAL 0.3 MG/DL (0.2-1.0); CALCIUM LEVEL 9.4 MG/DL (8.8-10.2); CREATININE FOR GFR 1.31 MG/DL (0.70-1.30); GLOMERULAR FILTRATION RATE 56.5 (>42); POTASSIUM SERUM 4.3 MEQ/L (3.5-5.1); TOTAL PROTEIN 5.7 GM/DL (6.4-8.2)
[2020-02-24] MEDS: HumaLOG INSULIN (NovoLOG) PER UNIT SC SCH ×6 (03:08→20:44)
[2020-02-24] MEDS ORDERED: MORPHINE 2 MG/ML 1ML VIAL (J2270) IV PRN (03:30)
[2020-02-24] MEDS: NS 1,000 ML IV SCH ×2 (03:50→20:42)
[2020-02-24] MEDS ORDERED: HYDROMORPHONE HCL 0.5 MG/ 0.5 ML SYRINGE (J1170 PER 1) IV PRN ×2 (04:00)
[2020-02-24] MEDS ORDERED: VITA50005 PO (04:26)
[2020-02-24] MEDS ORDERED: BACT800T5 PO (04:26)
[2020-02-24] MEDS ORDERED: PANT-23 PO (04:26)
[2020-02-24] MEDS ORDERED: HYDROMORPHONE HCL 0.5 MG/ 0.5 ML SYRINGE (J1170 PER 1) IV STA (05:09)
[2020-02-24] MEDS ORDERED: cefTRIAXone SOD 1 GM in D5W MINI-BAG PLUS 50 ML IV SCH (06:00)
--- NOTE | 2020-02-24 06:07 | SMCUROLCON ---
Urology Consultation General Date of Consultation 02/24/20 Reason For Consultation This patient is seen for Hematuria. History of Present Illness The patient is a [79]-year-old [man] with a past medical history for [hematuria]. He reports s previous episode of hematuria about 1.5 years ago which resulted in being taken to OR for control of bleeding. He is unsure of what caused the bleeding at that time. He went to local ER with hematuria and clots. Catheter was placed and removed and then replaced prior to transfer here3. He denies any prostate cancer but is presently on meds for prostate enlargement. Medications Current Medications Current Medications Medications (Trade) Dose Ordered Sig/Rhiannon Route PRN Reason Start Time Stop Time Status Last Admin Dose Admin Acetaminophen (Tylenol Tab) 650 mg Q4H PRN PO PAIN OR FEVER 02/24/20 01:45 Al Hydrox/Mg Hydrox/Simethicone (Mylanta) 30 ml DAILY PRN PO DYSPEPSIA 02/24/20 01:45 Dextrose (Dextrose 50%) 25 ml ASDIRECTED PRN IV SEE LABEL COMMENTS 02/24/20 01:45 Glucagon (Glucagon) 1 mg ASDIRECTED PRN SC SEE LABEL COMMENTS 02/24/20 01:45 Glucose (Glucose) 16 GM ASDIRECTED PRN PO SEE LABEL COMMENTS 02/24/20 01:45 Home Med (Med Rec Complete!) ASDIRECTED XX 02/24/20 04:30 02/24/20 04:30 DC Hydromorphone HCl (Dilaudid) 0.2 mg Q3HP PRN IV MILD PAIN (PS 1-4) 02/24/20 04:00 02/24/20 04:14 Hydromorphone HCl (Dilaudid) 0.3 mg NOW STAT IV 02/24/20 05:09 02/24/20 05:10 DC 02/24/20 05:33 Hydromorphone HCl (Dilaudid) 0.4 mg Q3HP PRN IV MODERATE PAIN (PS 5-7) 02/24/20 04:00 Insulin Human Lispro (HumaLOG INSULIN) See Protocol Table Q6H SC 02/24/20 00:00 Magnesium Hydroxide (Milk Of Magnesia) 30 ml DAILY PRN PO CONSTIPATION 02/24/20 01:45 Morphine Sulfate (Morphine Sulfate Inj) 2 mg Q2H PRN IV BREAKTHROUGH PAIN 02/24/20 03:30 02/24/20 04:01 DC 02/24/20 03:51 Sodium Chloride 1,000 ml @ 80 mls/hr [id number] IV 02/24/20 03:00 02/24/20 03:50 Allergies Allergies: Coded Allergies: ibuprofen (Verified Allergy, Intermediate, HANDS SWELLING, ITCHING, 12/10/18) gabapentin (Verified Adverse Reaction, Intermediate, SEVERE IRRITABILITY/DEPRESSION, 12/10/18) Physical Examination General Exam: Moderate Distress EYE EXAM: PERRLA, Conjunctiva & lids normal, EOMI; No: Sclera icteric ENT EXAM: Atraumatic, Mucous membr. moist/pink, Pharynx Normal Neck Exam: Supple; No: JVD, thyromegaly Abdomen Exam: Normal Bowel Sounds, Other (tender, distended bladder) Male Exam: Discharge (uncircumsized with bloody discharge at meatus) Female Exam: Nl Ext Genitalia; No: Lesions, Discharge, Odor, Tenderness Vital Signs/I&O Vital Signs Date Time Temp Pulse Resp B/P (MAP) Pulse Ox O2 Delivery O2 Flow Rate FiO2 02/24/20 05:33 16 Room Air 02/24/20 04:14 101 176/68 02/24/20 01:30 98.6 98 Laboratory Data 24H Labs Laboratory Tests 2 02/24/20 01:41: Coronavirus (COVID-19)(PCR) NEGATIVE 02/24/20 01:54: Nucleated Red Blood Cells % (auto) 0.0, Prothrombin Time 13.7, Prothromb Time International Ratio 1.03, Activated Partial Thromboplast Time 26.9, Anion Gap 6L, Glomerular Filtration Rate 56.5, Calcium Level 9.4, Total Bilirubin 0.3, Aspartate Amino Transf (AST/SGOT) 17, Alanine Aminotransferase (ALT/SGPT) 35, Alkaline Phosphatase 91, Total Protein 5.7L, Albumin 2.7L, Albumin/Globulin Ratio 0.9 CBC/BMP Laboratory Tests 02/24/20 01:54 Assessment Gross hematuria with clot retention, recurrent Plan Given his pain and difficulty with catheters, I will arrange to take him to OR this morning for Cystoscopy, Evacuation of Clots and Fulguration of bleeders. Risks and benefits of this have been discussed with patient in detail. MARCIE UGARTE MD Feb 24, 2020 06:07
[2020-02-24] MEDS ORDERED: dexameTHASONE 4 MG/ML 1ML VIAL (J1100 PER 1MG) As Ordered ONE (07:02)
[2020-02-24] MEDS ORDERED: propofoL 200 MG/20 ML VIAL As Ordered ONE (07:02)
[2020-02-24] MEDS ORDERED: MIDAZOLAM INJ 2MG/2ML VIAL (J2250 PER 1MG) As Ordered ONE (07:02)
[2020-02-24] MEDS ORDERED: LIDOCAINE 2% 100MG/5ML SDV (FOR ANES.) As Ordered ONE (07:02)
[2020-02-24] MEDS ORDERED: ONDANSETRON 4MG/2ML VIAL As Ordered ONE (07:02)
[2020-02-24] MEDS ORDERED: fentaNYL 100 MCG/2 ML INJECTION (J3010) As Ordered ONE ×2 (07:02→07:23)
[2020-02-24] MEDS ORDERED: cefTRIAXone SOD 1GM VIAL (J0696 PER 250MG) As Ordered ONE (07:07)
[2020-02-24] MEDS ORDERED: PHENYLephrine HCL 500 MCG/5 ML (100MCG/ML) SYRINGE (J2370) As Ordered ONE (07:34)
[2020-02-24] MEDS ORDERED: FUROSEMIDE 100MG/10ML VIAL (J1940) As Ordered ONE (07:43)
[2020-02-24] MEDS ORDERED: ONDANSETRON 4MG/2ML VIAL IV PRN (08:45)
[2020-02-24] MEDS ORDERED: LR 1,000 ML IV SCH (08:45)
[2020-02-24] MEDS ORDERED: oxyCODONE 5MG TAB PO PRN (08:45)
[2020-02-24] MEDS ORDERED: fentaNYL 100 MCG/2 ML INJECTION (J3010) IV PRN (08:45)
[2020-02-24 11:39] LABS: PERCENT SATURATION 10.8 % (19.7-50.0)
[2020-02-24 19:49] LABS: HEMATOCRIT 25.9 % (42.0-52.0); HEMOGLOBIN 8.3 g/dl (13.5-17.5)
[2020-02-24] MEDS ORDERED: rOPINIRole 2MG TAB PO SCH (21:00)
[2020-02-24] MEDS ORDERED: rOPINIRole 2MG TAB PO ONE (21:00)
[2020-02-24] MEDS: ACETAMINOPHEN TAB 650MG DOSE (2X325MG) PO PRN (22:31)
[2020-02-25 02:00] VITALS: BP 146/62
[2020-02-25 06:00] VITALS: BP 142/60
[2020-02-25 06:53] LABS: HEMATOCRIT 26.8 % (42.0-52.0); HEMOGLOBIN 8.5 g/dl (13.5-17.5); MEAN CORPUSCULAR HEMOGLOBIN 28.6 pg (27.0-33.0); MEAN CORPUSCULAR HGB CONC 31.7 g/dl (32.0-36.5); MEAN CORPUSCULAR VOLUME 90.2 fl (80.0-96.0); PLATELET COUNT, AUTOMATED 257 10^3/uL (150-450); RED BLOOD COUNT 2.97 10^6/uL (4.30-6.10); WHITE BLOOD COUNT 8.6 10^3/uL (4.0-10.0)
[2020-02-25 07:22] LABS: BLOOD UREA NITROGEN 18 MG/DL (7-18); CALCIUM LEVEL 8.2 MG/DL (8.8-10.2); CARBON DIOXIDE LEVEL 23 MEQ/L (21-32); CHLORIDE LEVEL 113 MEQ/L (98-107); CREATININE FOR GFR 1.19 MG/DL (0.70-1.30); GLOMERULAR FILTRATION RATE > 60.0 (>42); GLUCOSE, FASTING 133 MG/DL (70-100); POTASSIUM SERUM 4.2 MEQ/L (3.5-5.1); SODIUM LEVEL 144 MEQ/L (136-145)
[2020-02-25] MEDS: rOPINIRole 2MG TAB PO SCH ×3 (08:10→20:50)
[2020-02-25] MEDS: HumaLOG INSULIN (NovoLOG) PER UNIT SC SCH ×4 (08:10→20:54)
[2020-02-25] MEDS: NS 1,000 ML IV SCH ×3 (08:19→20:50)
--- NOTE | 2020-02-25 08:54 | IPNPDOC ---
Subjective Review oF Systems Chief Complaint The patient is a 79-year-old male admitted with a reason for visit of Hematuria. Events since Last Encounter He is sitting up in bed and feeling better. He reports some discomfort at his penile meatus, likely bladder spasms. He is tolerating his diet. Objective Physical Examination Eye Exam: PERRLA, Conjunctiva & lids normal, EOMI; No: Sclera icteric ENT EXAM: Atraumatic, Mucous membr. moist/pink, Pharynx Normal ABDOMEN EXAM: Other (No appreciable tenderness or distension) Male Exam: Normal Sphincter Tone (His sanchez is draining largely clear urine without clots) Vital Signs/I&O Vital Signs Date Time Temp Pulse Resp B/P (MAP) Pulse Ox O2 Delivery O2 Flow Rate FiO2 02/25/20 06:00 98.6 94 18 142/60 (87) 95 Room Air 02/24/20 12:05 2.0 I&O- Last 24 Hours up to 6 AM 02/25/20 06:00 Intake Total 2000 ml Output Total 4275 ml Balance -2275 ml Laboratory Data Labs 24H Laboratory Tests 2 02/24/20 10:52: Iron Level 27L, Total Iron Binding Capacity 250, Transferrin % Saturation 10.8L, Ferritin 212, Vitamin B12 Level 345, Folate 13.0 02/24/20 11:04: Bedside Glucose (Misc Panel) 182H 02/24/20 16:43: Bedside Glucose (Misc Panel) 146H 02/24/20 19:58: Bedside Glucose (Misc Panel) 147H 02/25/20 06:33: Nucleated Red Blood Cells % (auto) 0.0, Anion Gap 8, Glomerular Filtration Rate > 60.0, Calcium Level 8.2L 02/25/20 07:03: Urine Color YELLOW, Urine Appearance HAZY, Urine pH 5.0, Urine Specific [place] 1.011, Urine Protein 2+H, Urine Glucose (UA) 1+H, Urine Ketones NEGATIVE, Urine Blood 3+H, Urine Nitrite NEGATIVE, Urine Bilirubin NEGATIVE, Urine Urobilinogen 0.2, Urine Leukocyte Esterase TRACEH, Urine WBC (Auto) 83H, Urine RBC (Auto) TNTCH, Urine Hyaline Casts (Auto) 0, Urine Bacteria (Auto) NEGATIVE, Urine Squamous Epithelial Cells 0, Urine Mucus (Auto) SMALL, Urine Sperm (Auto) CBC/BMP Laboratory Tests 02/24/20 10:52 02/24/20 19:37 02/25/20 06:33 FSBS Laboratory Tests Test 02/24/20 11:04 02/24/20 16:43 02/24/20 19:58 Range/Units Bedside Glucose (Misc Panel) 182 146 147 83-110 MG/DL Microbiology Microbiology 02/25/20 Urine Culture, Received Pending Assessment/Plan Date Seen The patient was seen on 02/25/20. Patient Summary S/P cystoscopy with evacuation of clots and fulguration of bleeders for clot retention. He was found to have a bladder rupture at time of surgery. He is presently healing well. Plan/VTE VTE Prophylaxis Ordered?: No Plan I am in favor of ambulation with scrotal support today. I will plan for cystogram tomorrow and possible discharge after that.Regardless of the results, he will need catheter for at least 1 week and oral antibiotics to prevent infection. I will follow with you. MARCIE UGARTE MD Feb 25, 2020 08:54
[2020-02-25 10:00] VITALS: BP 143/62
--- NOTE | 2020-02-25 10:28 | IPNPDOC ---
Date Seen The patient was seen on 02/25/20. Progress Note SUBJECTIVE: Patient was seen and examined at bedside. He is doing well. States that his scrotal swelling has improved slightly. Denies any fevers, chills, shortness of breath, nausea vomiting diarrhea. Mild to moderate hematuria noted bilaterally. Good appetite. Tolerating regular diet. No acute events overnight. OBJECTIVE PHYSICAL EXAMINATION: VITAL SIGNS: please see below General: NAD, comfortable HEENT: PERRLA, EOMI, sclerae clear Neck: supple, normal ROM, no JVD Respiratory: lungs CTAB, no wheeze, no rales, no crackles CVS: RRR, normal S1, S2, no murmurs Abdo: Mildly distended. Nontender. No rebound tenderness. Extremities: no edema, pulses 2+ : Market scrotal swelling and erythema. Sanchez catheter in place. MSK: no joint deformities, normal ROM Neuro: no focal neuro deficits, moving all 4 extremities, CN2-12 intact. Strength 5/5 in all 4 extremities. No nystagmus. Psych: calm, cooperative, AAO x 3 LABORATORY DATA, IMAGING STUDIES, MICROBIOLOGY: Please see below. DVT prophylaxis ordered?: SCDs, TEDs ASSESSMENT AND PLAN: Mr. Daniel is a 79-year-old with a history of BPH, HTN, IDDM, dyslipidemia R LS and multiple surgeries including history of cystoscopy without findings of malignancy who presented to [facility] with complaints of severe pain, and gross hematuria with clots in his Sanchez; he was transferred to [facility] for urological evaluation. S/p cystoscopy by Dr. Worrell with evacuation of clots and fulguration of bleeding vessels for clot retention. Concern for bladder rupture. Monitoring for healing, per urology progressing well. PROBLEMS: #Hematuria: Hgb 9/7 down to 8.5. Monitor. s/p cystoscopy in OR. concern for bladder rupture. Concern for urine leak into peritoneum/scrotum. Lasix for diuresis. Plan for cystogram on 02/25. Will require sanchez for 1 week and PO antibiotics. #Scrotal edema: likely from urine leak into peritoneum/scrotum from intra op bladder rupture. Scrotal support. #UTI: IV ceftriaxone. Urine culture pending. #BPH with LUTS: urology following. flomax. finasteride #NIDDM: ISS. FSBS AC and HS. Hypoglycemic precautions. #HTN (chronic): c/w lisinopril #RLS: c/w ropinirole DVT pxp: TEDs and SCDs Dispo: admission to last > 2 midnights, pending urology clearance. Possible DC on 02/26/20. VS, I&O, 24H, Fishbone Vital Signs/I&O Vital Signs Date Time Temp Pulse Resp B/P (MAP) Pulse Ox O2 Delivery O2 Flow Rate FiO2 02/25/20 06:00 98.6 94 18 142/60 (87) 95 Room Air 02/24/20 12:05 2.0 I&O- Last 24 Hours up to 6 AM 02/25/20 05:59 Intake Total 2160 ml Output Total 3775 ml Balance -1615 ml Laboratory Data 24H LABS Laboratory Tests 2 02/24/20 10:52: Iron Level 27L, Total Iron Binding Capacity 250, Transferrin % Saturation 10.8L, Ferritin 212, Vitamin B12 Level 345, Folate 13.0 02/24/20 11:04: Bedside Glucose (Misc Panel) 182H 02/24/20 16:43: Bedside Glucose (Misc Panel) 146H 02/24/20 19:58: Bedside Glucose (Misc Panel) 147H 02/25/20 06:33: Nucleated Red Blood Cells % (auto) 0.0, Anion Gap 8, Glomerular Filtration Rate > 60.0, Calcium Level 8.2L 02/25/20 07:03: Urine Color YELLOW, Urine Appearance HAZY, Urine pH 5.0, Urine Specific [place] 1.011, Urine Protein 2+H, Urine Glucose (UA) 1+H, Urine Ketones NEGATIVE, Urine Blood 3+H, Urine Nitrite NEGATIVE, Urine Bilirubin NEGATIVE, Urine Urobilinogen 0.2, Urine Leukocyte Esterase TRACEH, Urine WBC (Auto) 83H, Urine RBC (Auto) TNTCH, Urine Hyaline Casts (Auto) 0, Urine Bacteria (Auto) NEGATIVE, Urine Squamous Epithelial Cells 0, Urine Mucus (Auto) SMALL, Urine Sperm (Auto) CBC/BMP Laboratory Tests 02/24/20 10:52 02/24/20 19:37 02/25/20 06:33 Microbiology Microbiology 02/25/20 Urine Culture, Received Pending CASSIE WEBBER MD Feb 25, 2020 10:28
--- NOTE | 2020-02-25 12:24 | RO ---
OPERATIVE NOTE DATE OF OPERATION: 02/24/2020 PREOPERATIVE DIAGNOSIS: Clot urinary retention. POSTOPERATIVE DIAGNOSES: 1. Clot urinary retention. 2. Bladder rupture. OPERATIVE PROCEDURES PERFORMED: 1. Cystoscopy. 2. Evacuation of clot. 3. Fulguration of bleeders. SURGEON: Angel Worrell M.D. ANESTHESIA: General. ESTIMATED BLOOD LOSS: 200 mL. INDICATIONS: Mr. Rishabh Daniel is a 79-year-old gentleman who came to the hospital with clot urinary retention. A catheter was in place, but not draining. Multiple attempts at manually removing the clots via the catheter were unsuccessful. He now presents for operative management. PROCEDURE IN DETAIL: The patient was brought into the operating room and placed in the supine position. After administration of general anesthesia, he was placed in the dorsolithotomy position and prepped and draped in the usual sterile fashion. Distal ureteroscopy was performed using a 21-Luxembourger cystoscope. 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 The prostate revealed significant elevation of the median bar. Entrance into the bladder was moderately difficult as a result of this. Upon initial entrance into the bladder, the bladder was filled with clots and no mucosa was identified. Attempts were first made to remove the clot via the cystoscope and this was unsuccessful. There was poor flow, and I suspected that the bladder was packed full of tenacious clot. The cystoscope and sheath were removed and replaced with a 26-Luxembourger resectoscope sheath. Attempts were then made to remove the clot again using irrigation and this was unsuccessful. Attempts were then made to use the Learnerator evacuator and this was also unsuccessful. Finally, a resecto- scope and a loop were used to remove some of the clot. After this, the syringe was used to irrigate a lot of clot. Approximately 200 mL of clot was removed from the bladder. There was moderate bleeding seen coming from the median lobe of the prostate and this was fulgurated using the electrocautery device. No resection was performed. Multiple other bleeders seen in the region of the prostate were also fulgurated with the electrocautery device. Once all of the clot was removed, complete visualization of the bladder mucosa was possible. The ureteral orifices were in their normal anatomical position and produced clear efflux. The posterior and lateral foy of the bladder were all erythema and edematous, but without any obvious lesions. In the dome of the bladder was a rent seen suspicious for bladder rupture. There was minimal bleeding noted from this area, but perivesical fat was visualized. The decision was then made to abort the case. The resectoscope and the sheath were removed and the cystoscope was returned to the bladder. A 5-Luxembourger open-ended ureteral catheter was then placed into the bladder and an Amplatz wire placed through this. An 18-Luxembourger [place]-tip wire was placed over this and into the bladder and the balloon inflated with 20 mL of sterile water. The urine efflux was noted to be blood-tinged. The patient was returned to the supine position and anesthesia was reversed. He was transferred to a bed and taken to the post anesthesia care unit in good condition. Of note, the needle and instrument counts were correct at the conclusion of the case. JERRY
[2020-02-25 14:00] VITALS: BP 138/58
[2020-02-25 18:00] VITALS: BP 145/66
[2020-02-25 22:00] VITALS: BP 168/72
[2020-02-25] MEDS: ACETAMINOPHEN TAB 650MG DOSE (2X325MG) PO PRN (22:19)
[2020-02-26 06:00] VITALS: BP 120/68
--- NOTE | 2020-02-26 07:40 | IPNPDOC ---
Subjective Review oF Systems Chief Complaint The patient is a 79-year-old male admitted with a reason for visit of Hematuria. Events since Last Encounter He feels well and is anxious to go home. He has some continued bloody discharge around the catheter at the penile tip. Objective Physical Examination Eye Exam: PERRLA, Conjunctiva & lids normal, EOMI; No: Sclera icteric ENT EXAM: Atraumatic, Mucous membr. moist/pink, Pharynx Normal ABDOMEN EXAM: Other (No appreciable tenderness or distension) Male Exam: Discharge (Blood staining at meatus), Normal Sphincter Tone (His sanchez is draining largely clear urine without clots) Vital Signs/I&O Vital Signs Date Time Temp Pulse Resp B/P (MAP) Pulse Ox O2 Delivery O2 Flow Rate FiO2 02/25/20 22:00 99.1 92 20 168/72 (104) 97 Room Air 02/24/20 12:05 2.0 I&O- Last 24 Hours up to 6 AM 02/26/20 06:00 Intake Total 2670 ml Output Total 2900 ml Balance -230 ml Laboratory Data Labs 24H Laboratory Tests 2 02/25/20 11:37: Bedside Glucose (Misc Panel) 146H 02/25/20 17:02: Bedside Glucose (Misc Panel) 185H 02/25/20 20:47: Bedside Glucose (Misc Panel) 146H 02/25/20 21:03: FSBS Laboratory Tests Test 02/25/20 11:37 02/25/20 17:02 02/25/20 20:47 Range/Units Bedside Glucose (Misc Panel) 146 185 146 83-110 MG/DL Microbiology Microbiology 02/25/20 Urine Culture - Final, Resulted Assessment/Plan Date Seen The patient was seen on 02/26/20. Patient Summary 79 yo with clot retention and bladder rupture, now clinically stable Plan/VTE VTE Prophylaxis Ordered?: No Plan Plan for cystogram this morning; hopeful discharge later today if extra- peritoneal or small. MARCIE UGARTE MD Feb 26, 2020 07:39
[2020-02-26] MEDS: rOPINIRole 2MG TAB PO SCH (08:12)
[2020-02-26] MEDS: HumaLOG INSULIN (NovoLOG) PER UNIT SC SCH ×2 (08:13→12:00)
[2020-02-26] MEDS: NS 1,000 ML IV SCH (08:22)
[2020-02-26] MEDS ORDERED: CYSTO-CONRAY II 17.2% 250ML VIAL (Q9958) As Ordered ONE (13:52)
--- NOTE | 2020-02-26 15:22 | IPNPDOC ---
Subjective Review oF Systems Chief Complaint The patient is a 79-year-old male admitted with a reason for visit of Hematuria. Events since Last Encounter He had a cystogram earlier this afternoon, which revealed no extravasation. He is safe for discharge home. Objective Physical Examination Eye Exam: PERRLA, Conjunctiva & lids normal, EOMI; No: Sclera icteric ENT EXAM: Atraumatic, Mucous membr. moist/pink, Pharynx Normal ABDOMEN EXAM: Other (No appreciable tenderness or distension) Male Exam: Discharge (Blood staining at meatus), Normal Sphincter Tone (His sanchez is draining largely clear urine without clots) Vital Signs/I&O Vital Signs Date Time Temp Pulse Resp B/P (MAP) Pulse Ox O2 Delivery O2 Flow Rate FiO2 02/26/20 06:00 98.6 77 18 120/68 (85) 95 Room Air 02/24/20 12:05 2.0 I&O- Last 24 Hours up to 6 AM 02/26/20 06:00 Intake Total 2670 ml Output Total 3600 ml Balance -930 ml Laboratory Data Labs 24H Laboratory Tests 2 02/25/20 17:02: Bedside Glucose (Misc Panel) 185H 02/25/20 20:47: Bedside Glucose (Misc Panel) 146H 02/25/20 21:03: 02/26/20 12:18: Bedside Glucose (Misc Panel) 121H FSBS Laboratory Tests Test 02/25/20 17:02 02/25/20 20:47 02/26/20 12:18 Range/Units Bedside Glucose (Misc Panel) 185 146 121 83-110 MG/DL Microbiology Microbiology 02/25/20 Urine Culture - Final, Resulted Assessment/Plan Date Seen The patient was seen on 02/26/20. Plan/VTE VTE Prophylaxis Ordered?: No Plan Okay for discharge home with sanchez to leg bag. He can follow up with Urology next week for catheter removal. I would send him home with oral antibiotics and analgesics. MARCIE UGARTE MD Feb 26, 2020 15:22
--- NOTE | 2020-02-26 15:45 | DS.PDOC ---
Discharge Summary General Date of Admission Feb 24, 2020 at 01:25 Date of Discharge 02/26/20 Discharge Summary PROCEDURES PERFORMED DURING STAY: POSTOPERATIVE DIAGNOSES: 1. Clot urinary retention. 2. Bladder rupture. OPERATIVE PROCEDURES PERFORMED: 1. Cystoscopy. 2. Evacuation of clot. 3. Fulguration of bleeders. SURGEON: Angel Ugarte M.D. ANESTHESIA: General. ESTIMATED BLOOD LOSS: 200 mL. INDICATIONS: Mr. Rishabh Daniel is a 79-year-old gentleman who came to the hospital with clot urinary retention. A catheter was in place, but not draining. Multiple attempts at manually removing the clots via the catheter were unsuccessful. He now presents for operative management. PROCEDURE IN DETAIL: The patient was brought into the operating room and placed in the supine position. After administration of general anesthesia, he was placed in the dorsolithotomy position and prepped and draped in the usual sterile fashion. Distal ureteroscopy was performed using a 21-Moroccan cystoscope. 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 The prostate revealed significant elevation of the median bar. Entrance into the bladder was moderately difficult as a result of this. Upon initial entrance into the bladder, the bladder was filled with clots and no mucosa was identified. Attempts were first made to remove the clot via the cystoscope and this was unsuccessful. There was poor flow, and I suspected that the bladder was packed full of tenacious clot. The cystoscope and sheath were removed and replaced with a 26-Moroccan resectoscope sheath. Attempts were then made to remove the clot again using irrigation and this was unsuccessful. Attempts were then made to use the Novalact evacuator and this was also unsuccessful. Finally, a resecto- scope and a loop were used to remove some of the clot. After this, the syringe was used to irrigate a lot of clot. Approximately 200 mL of clot was removed from the bladder. There was moderate bleeding seen coming from the median lobe of the prostate and this was fulgurated using the electrocautery device. No resection was performed. Multiple other bleeders seen in the region of the prostate were also fulgurated with the electrocautery device. Once all of the clot was removed, complete visualization of the bladder mucosa was possible. The ureteral orifices were in their normal anatomical position and produced clear efflux. The posterior and lateral foy of the bladder were all erythema and edematous, but without any obvious lesions. In the dome of the bladder was a rent seen suspicious for bladder rupture. There was minimal bleeding noted from this area, but perivesical fat was visualized. The decision was then made to abort the case. The resectoscope and the sheath were removed and the cystoscope was returned to the bladder. A 5-Moroccan open-ended ureteral catheter was then placed into the bladder and an Amplatz wire placed through this. An 18-[place]occan [place]-tip wire was placed over this and into the bladder and the balloon inflated with 20 mL of sterile water. The urine efflux was noted to be blood-tinged. The patient was returned to the supine position and anesthesia was reversed. He was transferred to a bed and taken to the post anesthesia care unit in good condition. Of note, the needle and instrument counts were correct at the conclusion of the case. DD: ANGEL UGARTE MD 02/25/20 0904 DT: DARON 02/25/20 1111 DS: PAULA 02/29/20818 <Electronically signed by ANGEL UGARTE MD> 02/29/20818 DS2: ADMITTING DIAGNOSES: Hematuria UTI BPH with LUTS NIDDM Chronic HTN RLS DISCHARGE DIAGNOSES: Hematuria Bladder rupture Bleeding UTI BPH with LUTS NIDDM Chronic HTN RLS COMPLICATIONS/CHIEF COMPLAINT: Hematuria. HISTORY OF PRESENT ILLNESS: This 79-year-old gentleman presented to [facility] with complaints of blood in his urinary catheter. He has a history of BPH with LUTS. He had a Sanchez catheter placed on February [address] [facility], was treated for UTI, and discharged on February 19 with the catheter still in place. He presented here to [facility] on February 20 with complaints of hematuria and recurrence of clots in his Catheter. The catheter was flushed and he was discharged home from the ER but on the evening of February 22, he returned to [facility] with complaints of discomfort due to the Sanchez along with blood clots in the tubing and was diagnosed with pansensiti ve Escherichia coli UTI. He was transferred to [facility] for Urological evaluation. Based on the notes from [facility] his hemoglobin 10.5. HOSPITAL COURSE: #Hematuria: Hgb 9/7 down to 8.5. Monitor. s/p cystoscopy in OR. concern for bladder rupture. Concern for urine leak into peritoneum/scrotum. Lasix for diuresis. Plan for cystogram on 02/25. Will require sanchez for 1 week and PO antibiotics. Patient was admitted for workup and treatment of acute blood loss anemia secondary to hematuria. Patient was evaluated by urology service, Dr. Ugarte and taken to OR for cystoscopy, fulguration of bleeders and clot removal. Suspicion for bladder rupture, with leak of urine into the peritoneum and scrotum accounting for scrotal edema and abdominal distension. Patient's hemoglobin stable at 8.5. Sanchez catheter was left in placed, and patient was asked to follow up with urology in 1 week. Although urine culture was negative for growth, perhaps due to prior treatment of pansens E coli at OSH, patient was treated with ceftriaxone while inpt and discharged with PO bactrim given surgical instrumentation. #Scrotal edema: likely from urine leak into peritoneum/scrotum from intra op bladder rupture. Scrotal support. #UTI: IV ceftriaxone. Per report, smith sens E coli at recent visit at [facility]. Urine culture negative. Bactrim on DC. #BPH with LUTS: urology. flomax. finasteride #NIDDM: ISS. FSBS AC and HS. Hypoglycemic precautions. #HTN (chronic): c/w lisinopril, Cr normalized. #RLS: c/w ropinirole DVT pxp: TEDs and SCDs DISCHARGE MEDICATIONS: Please see below. ALLERGIES: Please see below. PHYSICAL EXAMINATION ON DISCHARGE: VITAL SIGNS: Please see below. General: NAD, comfortable HEENT: PERRLA, EOMI, sclerae clear Neck: supple, normal ROM, no JVD Respiratory: lungs CTAB, no wheeze, no rales, no crackles CVS: RRR, normal S1, S2, no murmurs Abdo: Mildly distended. Nontender. No rebound tenderness. Extremities: no edema, pulses 2+ : Improving scrotal swelling and erythema. Sanchez catheter in place. MSK: no joint deformities, normal ROM Neuro: no focal neuro deficits, moving all 4 extremities, CN2-12 intact. Strength 5/5 in all 4 extremities. No nystagmus. Psych: calm, cooperative, AAO x 3 LABORATORY DATA: Please see below. IMAGING: Cystogram Xray (02/26/20): FINDINGS: The bladder demonstrates bladder wall trabecula and pseudodiverticulum consistent with chronic outlet obstruction. The bladder has an otherwise normal contour and there is no evidence for extravasation. Postvoid image demonstrates complete emptying of the bladder. Total fluoroscopic time 0.1 minutes. IMPRESSION: Findings consistent with chronic bladder outlet obstruction. No evidence for extravasation. PROGNOSIS: good ACTIVITY: [As tolerated]. DIET: consistent carbohydrate DISCHARGE PLAN: DC home with sanchez, f/u with urology in 1 week. Continue antibiotics. Follow up with PCP 3-5 days. DISCHARGE INSTRUCTIONS: Please follow up with PCP in 3-5 days Please follow up with urology in 1 week Please take medications as prescribed If you develop fevers, chills, worsening blood in urine, chest pain, or otherwise worsening of your symptoms, please call 911 or return to the nearest emergency room. DISCHARGE CONDITION: [Stable]. TIME SPENT ON DISCHARGE: 35 minutes Vital Signs/I&Os Vital Signs Date Time Temp Pulse Resp B/P (MAP) Pulse Ox O2 Delivery O2 Flow Rate FiO2 02/26/20 06:00 98.6 77 18 120/68 (85) 95 Room Air 02/24/20 12:05 2.0 I&O- Last 24 Hours up to 6 AM 02/26/20 06:00 Intake Total 2670 ml Output Total 3600 ml Balance -930 ml Laboratory Data Labs 24H Laboratory Tests 2 02/25/20 17:02: Bedside Glucose (Misc Panel) 185H 02/25/20 20:47: Bedside Glucose (Misc Panel) 146H 02/25/20 21:03: 02/26/20 12:18: Bedside Glucose (Misc Panel) 121H FSBS Laboratory Tests Test 02/25/20 17:02 02/25/20 20:47 02/26/20 12:18 Range/Units Bedside Glucose (Misc Panel) 185 146 121 83-110 MG/DL Microbiology Microbiology 02/25/20 Urine Culture - Final, Resulted Discharge Medications Scheduled Atorvastatin Calcium (Atorvastatin Calcium) 20 Mg Tablet, 20 MG PO QHS, (Reported) Ergocalciferol (Vitamin D2) (Vitamin D2) 50,000 Units Cap, 50,000 UNITS PO Q2WK, (Reported) AROUND THE 1ST AND THE 15TH OF EACH MONTH Finasteride (Proscar) 5 Mg Tablet, 5 MG PO QHS, (Reported) Lisinopril (Lisinopril) 10 Mg Tablet, 10 MG PO DAILY, (Reported) Metformin HCl (Metformin HCl ER) 500 Mg Tab.er.24h, 1,000 MG PO BID, (Reported) [place]-3 Acid Ethyl Esters (Lovaza) 1 Gm Capsule, 2 CAP PO BID, (Reported) Pantoprazole Sodium (Pantoprazole Sodium) 40 Mg Tablet.dr, 40 MG PO DAILY, (Reported) Ropinirole HCl (Ropinirole HCl) 1 Mg Tablet, 2 MG PO BID, (Reported) DINNER AND BEDTIME Sulfamethoxazole/Trimethoprim (Sulfamethoxazole-Tmp Ds Tablet) 1 Each Tablet, 1 TAB PO BID Tamsulosin HCl (Flomax) 0.4 Mg Capsule, 0.4 MG PO QHS, (Reported) Scheduled PRN Acetaminophen (Acetaminophen) 325 Mg Tablet, 650 MG PO Q4H PRN for PAIN OR FEVER Meclizine HCl (Meclizine HCl) 25 Mg Tablet, 25 MG PO TID PRN for DIZZINESS, (Reported) Tramadol HCl (Tramadol HCl) 50 Mg Tablet, 50 MG PO BIDP PRN for pain Allergies Coded Allergies: ibuprofen (Verified Allergy, Intermediate, HANDS SWELLING, ITCHING, 12/10/18) gabapentin (Verified Adverse Reaction, Intermediate, SEVERE IRRITABILIT Y/DEPRESSION, 12/10/18) CASSIE WEBBER MD Feb 26, 2020 15:45
[2020-02-26] MEDS ORDERED: ACET1TAB55 PO (15:50)
[2020-02-26] MEDS ORDERED: SULF1TAB93 PO (15:50)
[2020-02-26] MEDS ORDERED: TRAM50TA2 PO (15:51)
--- NOTE | 2020-02-26 17:29 | REP ---
INDICATION: bladder rupture. COMPARISON: None. TECHNIQUE: Support Representative film of the pelvis obtained followed by retrograde filling of the bladder via previously placed Cash catheter with 325 cc Cysto-Conray. Last hold images obtained in frontal, bilateral oblique, and post voiding state. FINDINGS: The bladder demonstrates bladder wall trabecula and pseudodiverticulum consistent with chronic outlet obstruction. The bladder has an otherwise normal contour and there is no evidence for extravasation. Postvoid image demonstrates complete emptying of the bladder. Total fluoroscopic time 0.1 minutes. IMPRESSION: Findings consistent with chronic bladder outlet obstruction. No evidence for extravasation. <Electronically signed by Zan Chairez > 02/26/20 [id number]
[2020-03-01 18:14] LABS: CALPROTECTIN STOOL 106 ug/g (0-120)
== END 2020-02-26 17:11 | disposition home or self-care (01) | DRG 717 ==
LOC: M MSPAV 02-24 01:25
PROVIDERS: ADMIT Internal Medicine; ATTEND Family Medicine
PROC: 0TCB8ZZ Extirpation of Matter from Bladder, Via Natural or Artificial Opening Endoscopic (ICD-10-PCS; 2020-02-24)
PROC: 0W3R8ZZ Control Bleeding in Genitourinary Tract, Via Natural or Artificial Opening Endoscopic (ICD-10-PCS; principal; 2020-02-24 07:00)
DX: N42.1 Congestion and hemorrhage of prostate (principal); N39.0 Urinary tract infection, site not specified; R31.9 Hematuria, unspecified; E11.9 Type 2 diabetes mellitus without complications; I10 Essential (primary) hypertension; E78.5 Hyperlipidemia, unspecified; Z79.899 Other long term (current) drug therapy; Z88.6 Allergy status to analgesic agent; N32.89 Other specified disorders of bladder; G25.81 Restless legs syndrome; Z96.643 Presence of artificial hip joint, bilateral; Z87.891 Personal history of nicotine dependence; Z88.8 Allergy status to other drugs, medicaments and biological substances

== ENCOUNTER → 2020-03-09 | Outpatient (REF) | payer MEDICARE ==
[~2020-03-09] MED LIST changes: +FERR325T3 PO; +SULF1TAB93 PO; +TRAM50TA2 PO; +VITA50005 PO
[2020-03-09 13:37] LABS: APPEARANCE, URINE CLOUDY (CLEAR); BACTERIA, URINE AUTO 1+ (NEGATIVE); BILIRUBIN, URINE AUTO NEGATIVE (NEGATIVE); BLOOD, URINE BLOOD 3+ (NEGATIVE); COLOR, URINE YELLOW (YELLOW); GLUCOSE, URINE (UA) AUTO 1+ mg/dL (NEGATIVE); KETONE, URINE AUTO NEGATIVE (NEGATIVE); LEUKOCYTE ESTERASE, URINE AUTO 2+ (NEGATIVE); MUCUS, URINE SMALL (NEGATIVE); NITRITE, URINE AUTO NEGATIVE (NEGATIVE); PROTEIN, URINE AUTO 2+ mg/dL (NEGATIVE); RBC, URINE AUTO TNTC /HPF (0-3); SPECIFIC GRAVITY URINE AUTO 1.016 (1.002-1.035); SQUAMOUS EPITHELIAL CELL UR AU 0 /HPF (0-6); UROBILINOGEN, URINE AUTO 0.2 mg/dL (0.0-2.0); WBC, URINE AUTO 40 /HPF (0-3)
== END ==
LOC: M SMT 13:09
PROVIDERS: ATTEND Nurse Practitioner Family
DX: Z01.818 Encounter for other preprocedural examination (principal); N40.1 Benign prostatic hyperplasia with lower urinary tract symptoms

== ENCOUNTER → 2020-03-11 | Outpatient (CLI) | payer MEDICARE | LOC: M LABSMTC 13:51 | PROVIDERS: ATTEND Anesthesiology | DX: Z01.818 Encounter for other preprocedural examination (principal); Z20.828 Contact with and (suspected) exposure to other viral communicable diseases ==

== ENCOUNTER 2020-03-16 06:01 | Day surgery (SDC) | payer MEDICARE ==
[~2020-03-16] VITALS: Ht 172.7 cm; Wt 79.8 kg
[2020-03-16] MEDS ORDERED: ceFAZolin SOD 2 GM in IV 1 EA IV ONE (07:00)
[2020-03-16] MEDS ORDERED: LR 1,000 ML IV ONE (07:00)
[2020-03-16 07:06] LABS: HEMATOCRIT 29.7 % (42.0-52.0); HEMOGLOBIN 9.2 g/dl (13.5-17.5); MEAN CORPUSCULAR HEMOGLOBIN 28.2 pg (27.0-33.0); MEAN CORPUSCULAR VOLUME 91.1 fl (80.0-96.0); PLATELET COUNT, AUTOMATED 191 10^3/uL (150-450); RED BLOOD COUNT 3.26 10^6/uL (4.30-6.10); WHITE BLOOD COUNT 5.6 10^3/uL (4.0-10.0)
[2020-03-16] MEDS ORDERED: propofoL 200 MG/20 ML VIAL As Ordered ONE (07:23)
[2020-03-16] MEDS ORDERED: LIDOCAINE 2% 100MG/5ML SDV (FOR ANES.) As Ordered ONE (07:23)
[2020-03-16] MEDS ORDERED: MIDAZOLAM INJ 2MG/2ML VIAL (J2250 PER 1MG) As Ordered ONE (07:23)
[2020-03-16] MEDS ORDERED: ONDANSETRON 4MG/2ML VIAL As Ordered ONE (07:23)
[2020-03-16] MEDS ORDERED: dexameTHASONE 4 MG/ML 1ML VIAL (J1100 PER 1MG) As Ordered ONE (07:23)
[2020-03-16] MEDS ORDERED: fentaNYL 100 MCG/2 ML INJECTION (J3010) As Ordered ONE (07:23)
[2020-03-16] MEDS ORDERED: PHENYLephrine HCL 500 MCG/5 ML (100MCG/ML) SYRINGE (J2370) As Ordered ONE (07:59)
[2020-03-16] MEDS ORDERED: ACETAMINOPHEN 1000MG 100ML IV BTL (OFIRMEV) (J0131 PER 10MG) As Ordered ONE (08:24)
[2020-03-16] MEDS ORDERED: LACRILUBE (AKWA TEARS) OPHTH OINT 3.5 GM As Ordered ONE (08:51)
[2020-03-16] MEDS ORDERED: HYDROmorphone HCL 2 MG/ML 1ML VIAL (J1170) As Ordered ONE (09:07)
[2020-03-16] MEDS ORDERED: FUROSEMIDE 100MG/10ML VIAL (J1940) As Ordered ONE (09:44)
[2020-03-16] MEDS ORDERED: BACT800T5 PO (10:54)
--- NOTE | 2020-03-16 11:03 | ROOPDOC ---
[facility] Report Of Operation Report of Operation DATE OF PROCEDURE: 03/16/20 PREPROCEDURE DIAGNOSIS: Benign prostatic hyperplasia with urinary retention. POSTPROCEDURE DIAGNOSIS: Benign prostatic hyperplasia with urinary retention. PROCEDURE: Cystoscopy, button transurethral electrovaporization of the prostate. SURGEON: Pretty Paul MD CUSTOMER SERVICE SALES CONSULTANT: None. ANESTHESIA: General. OPERATIVE INDICATIONS: This is a 79-year-old male with benign prostatic hyperplasia and urinary retention who was brought to the operating room today for treatment. DESCRIPTION OF PROCEDURE: The patient was brought to the operating room and general anesthesia was induced. Prophylactic antibiotics were infused. He was placed in the dorsal lithotomy position and prepped and draped in the usual sterile fashion. At this point, I advanced the resectoscope into the urethra and into the bladder. Of note, the patient had trilobar benign prostatic hyperplasia. I made note of the location of both ureteral orifices, as well as the verumontanum. At this point, I began vaporizing hyperplastic tissue on the median lobe and then circumferentially on the bladder neck. I then vaporized hyperplastic tissue on both lateral lobes. I kept doing this until there was a clear channel established. Throughout the procedure I made sure not to vaporize close to the ureteral orifices or distal to the verumontanum. Once there was a clear channel established, hemostasis was obtained using the coagulation current. Once satisfied with hemostasis, the resectoscope was removed and an 18-English Cash catheter was inserted into the bladder. The balloon was filled with 15 mL of sterile water and then the catheter was connected to gravity drainage. This marked the conclusion of the procedure. The patient was taken out of the dorsal lithotomy position, awakened from anesthesia and transported to the recovery room in stable condition. Estimated blood loss:30 mL. Complications: None. Specimens: None. PLAN: The patient will followup in the clinic in approximately 1 week for catheter removal and a voiding trial. PRETTY PAUL MD Mar 16, 2020 11:03
[2020-03-16] MEDS: oxyCODONE 5MG TAB PO PRN ×2 (11:14→11:54)
[2020-03-16] MEDS ORDERED: ONDANSETRON 4MG/2ML VIAL IV PRN (11:15)
[2020-03-16] MEDS ORDERED: HYDROMORPHONE HCL 0.5 MG/ 0.5 ML SYRINGE (J1170 PER 1) IV PRN (11:15)
[2020-03-16] MEDS ORDERED: fentaNYL 100 MCG/2 ML INJECTION (J3010) IV PRN (11:15)
[2020-03-16] MEDS ORDERED: ACETAMINOPHEN TAB 650MG DOSE (2X325MG) PO PRN (11:15)
[2020-03-16] MEDS ORDERED: LR 1,000 ML IV SCH (11:15)
[2020-03-16 14:30] VITALS: BP 163/72
== END 2020-03-16 14:15 | disposition home or self-care (01) ==
LOC: M SDC 06:01
PROVIDERS: ATTEND Urology
DX: N40.1 Benign prostatic hyperplasia with lower urinary tract symptoms (principal); R33.9 Retention of urine, unspecified; N13.8 Other obstructive and reflux uropathy; I10 Essential (primary) hypertension; E11.9 Type 2 diabetes mellitus without complications; E55.9 Vitamin D deficiency, unspecified; E78.5 Hyperlipidemia, unspecified; K21.9 Gastro-esophageal reflux disease without esophagitis; K44.9 Diaphragmatic hernia without obstruction or gangrene; M12.9 Arthropathy, unspecified; M54.2 Cervicalgia; R42 Dizziness and giddiness; G25.81 Restless legs syndrome; R06.83 Snoring; Z79.84 Long term (current) use of oral hypoglycemic drugs; Z79.899 Other long term (current) drug therapy; Z87.891 Personal history of nicotine dependence; Z88.6 Allergy status to analgesic agent; Z88.8 Allergy status to other drugs, medicaments and biological substances; Z96.1 Presence of intraocular lens; Z96.643 Presence of artificial hip joint, bilateral; Z98.41 Cataract extraction status, right eye; Z98.42 Cataract extraction status, left eye
CPT/HCPCS: 36415; 52601; 85027; C1769; J0131; J0690; J1100; J1170; J1940; J2250; J2370; J2405; J3010

== ENCOUNTER → 2020-04-20 | Outpatient (REF) | payer MEDICARE ==
[2020-04-20 14:07] LABS: APPEARANCE, URINE CLOUDY (CLEAR); BACTERIA, URINE AUTO 1+ (NEGATIVE); BILIRUBIN, URINE AUTO NEGATIVE (NEGATIVE); BLOOD, URINE BLOOD 3+ (NEGATIVE); COLOR, URINE YELLOW (YELLOW); GLUCOSE, URINE (UA) AUTO 3+ mg/dL (NEGATIVE); KETONE, URINE AUTO NEGATIVE (NEGATIVE); LEUKOCYTE ESTERASE, URINE AUTO 3+ (NEGATIVE); MUCUS, URINE SMALL (NEGATIVE); NITRITE, URINE AUTO NEGATIVE (NEGATIVE); PROTEIN, URINE AUTO 1+ mg/dL (NEGATIVE); RBC, URINE AUTO TNTC /HPF (0-3); SPECIFIC GRAVITY URINE AUTO 1.009 (1.002-1.035); SQUAMOUS EPITHELIAL CELL UR AU 0 /HPF (0-6); UROBILINOGEN, URINE AUTO 0.2 mg/dL (0.0-2.0); WBC, URINE AUTO TNTC /HPF (0-3)
== END ==
LOC: M SMT 13:03
PROVIDERS: ATTEND Nurse Practitioner Family
DX: N40.1 Benign prostatic hyperplasia with lower urinary tract symptoms (principal)

== ENCOUNTER → 2020-09-01 | Outpatient (REF) | payer MEDICARE ==
[~2020-09-01] MED LIST changes: +BACTDSTA PO; -DOCU-129 PO; +DOCU-153 PO; +LISI10TA22 PO; -LISI10TA4 PO; -SULF1TAB93 PO
[2020-09-02 12:33] LABS: APPEARANCE, URINE CLEAR (CLEAR); BACTERIA, URINE AUTO NEGATIVE (NEGATIVE); BILIRUBIN, URINE AUTO NEGATIVE (NEGATIVE); BLOOD, URINE BLOOD NEGATIVE (NEGATIVE); COLOR, URINE YELLOW (YELLOW); GLUCOSE, URINE (UA) AUTO 2+ mg/dL (NEGATIVE); KETONE, URINE AUTO NEGATIVE (NEGATIVE); LEUKOCYTE ESTERASE, URINE AUTO NEGATIVE (NEGATIVE); MUCUS, URINE SMALL (NEGATIVE); NITRITE, URINE AUTO NEGATIVE (NEGATIVE); PROTEIN, URINE AUTO 1+ mg/dL (NEGATIVE); RBC, URINE AUTO 1 /HPF (0-3); SPECIFIC GRAVITY URINE AUTO 1.014 (1.002-1.035); SQUAMOUS EPITHELIAL CELL UR AU 0 /HPF (0-6); UROBILINOGEN, URINE AUTO 0.2 mg/dL (0.0-2.0); WBC, URINE AUTO 5 /HPF (0-3)
== END ==
LOC: M SMT 12:03
PROVIDERS: ATTEND Nurse Practitioner Family
DX: N40.1 Benign prostatic hyperplasia with lower urinary tract symptoms (principal)

== ENCOUNTER 2020-11-02 10:44 | Emergency (ER) | payer MEDICARE ==
[~2020-11-02] VITALS: Ht 172.7 cm; Wt 84.1 kg
[~2020-11-02 10:44] MED LIST changes: +ERGO500029 PO; -VITA50005 PO
[2020-11-02] MEDS ORDERED: ULTR50TA8 PO (12:49)
[2020-11-02 13:08] VITALS: BP 191/84
[2020-11-02] MEDS ORDERED: TRAM50TA2 PO (13:29)
== END 2020-11-02 13:05 | disposition home or self-care (01) ==
LOC: M ED 10:44
DX: S29.012A Strain of muscle and tendon of back wall of thorax, initial encounter (principal); X50.0XXA Overexertion from strenuous movement or load, initial encounter; Y92.9 Unspecified place or not applicable; Y93.9 Activity, unspecified; Y99.9 Unspecified external cause status; Z88.6 Allergy status to analgesic agent; Z88.8 Allergy status to other drugs, medicaments and biological substances

== ENCOUNTER 2021-06-04 10:38 | Emergency (ER) | payer MEDICARE ==
[~2021-06-04] VITALS: Ht 172.7 cm; Wt 87.1 kg
[~2021-06-04 10:38] MED LIST changes: +ULTR50TA8 PO
[2021-06-04 10:41] VITALS: BP 158/68
[2021-06-04] MEDS ORDERED: CVS1CRE47 TOP (12:06)
== END 2021-06-04 12:17 | disposition home or self-care (01) ==
LOC: M ED 10:38
DX: R21 Rash and other nonspecific skin eruption (principal); E11.9 Type 2 diabetes mellitus without complications; I10 Essential (primary) hypertension; E78.5 Hyperlipidemia, unspecified; Z87.01 Personal history of pneumonia (recurrent); Z79.4 Long term (current) use of insulin; Z88.6 Allergy status to analgesic agent; Z79.899 Other long term (current) drug therapy

== ENCOUNTER → 2023-05-22 | Outpatient (REF) | payer MEDICARE ==
[~2023-05-22] MED LIST changes: +CVS1CRE47 TOP; -DOCU-153 PO; +FINA-48 PO; -PROS5TAB PO; -ROPI1TAB3 PO; +ROPI1TAB73 PO; +STOO100C30 PO
== END ==
LOC: M LABSMT 09:53
PROVIDERS: ATTEND Urology
DX: R39.9 Unspecified symptoms and signs involving the genitourinary system (principal); Z53.9 Procedure and treatment not carried out, unspecified reason

== ENCOUNTER 2023-05-23 14:31 | Emergency (ER) | payer MEDICARE, OTHER ==
[~2023-05-23] VITALS: Ht 172.7 cm; Wt 86.9 kg
[2023-05-23 16:35] LABS: APPEARANCE, URINE CLEAR (CLEAR); BACTERIA, URINE AUTO NEGATIVE (NEGATIVE); BILIRUBIN, URINE AUTO NEGATIVE (NEGATIVE); BLOOD, URINE BLOOD 2+ (NEGATIVE); COLOR, URINE YELLOW (YELLOW); GLUCOSE, URINE (UA) AUTO 3+ mg/dL (NEGATIVE); KETONE, URINE AUTO NEGATIVE (NEGATIVE); LEUKOCYTE ESTERASE, URINE AUTO NEGATIVE (NEGATIVE); NITRITE, URINE AUTO NEGATIVE (NEGATIVE); PROTEIN, URINE AUTO NEGATIVE (NEGATIVE); RBC, URINE AUTO 5 /HPF (0-3); SPECIFIC GRAVITY URINE AUTO 1.002 (1.002-1.035); SQUAMOUS EPITHELIAL CELL UR AU 0 /HPF (0-6); UROBILINOGEN, URINE AUTO 0.2 mg/dL (0.0-2.0); WBC, URINE AUTO 0 /HPF (0-3)
[2023-05-23 17:48] VITALS: BP 172/68; TEMP 97.4; O2SAT 95
== END 2023-05-23 18:18 | disposition home or self-care (01) ==
LOC: M ED 14:31
DX: R33.9 Retention of urine, unspecified (principal); E11.9 Type 2 diabetes mellitus without complications; I10 Essential (primary) hypertension; E78.5 Hyperlipidemia, unspecified; N40.0 Benign prostatic hyperplasia without lower urinary tract symptoms; Z79.02 Long term (current) use of antithrombotics/antiplatelets; Z79.811 Long term (current) use of aromatase inhibitors; Z79.4 Long term (current) use of insulin; Z79.899 Other long term (current) drug therapy

== ENCOUNTER 2024-07-25 13:08 | Observation (INO) | payer MEDICARE, MEDICAID ==
[~2024-07-25] VITALS: Ht 172.7 cm; Wt 86.4 kg
[~2024-07-25 13:08] MED LIST changes: -CYCL5TAB PO; +CYCL5TAB4 PO; -FLOM0.4C39 PO; +TAMS-18 PO
[2024-07-25 14:06] LABS: VENOUS HCO3 28.2 MMOL/L (23.0-27.0); VENOUS O2 SATURATION 80.4 % (60.0-80.0); VENOUS PARTIAL PRESSURE CO2 50.8 mmHg (38.0-50.0); VENOUS PARTIAL PRESSURE O2 45.2 mmHg (30.0-50.0); VENOUS PH 7.363 UNITS (7.330-7.430); VENOUS STANDARD HCO3 25.9 MMOL/L; VENOUS TOTAL CO2 29.8 MMOL/L (24.0-28.0)
[2024-07-25 14:16] LABS: BASO % 0.4 % (0.0-1.0); EOS # 0.1 10^3/uL (0.0-0.5); EOS % 2.4 % (0.0-3.0); HEMATOCRIT 39.2 % (42.0-52.0); HEMOGLOBIN 12.7 g/dl (13.5-17.5); LYMPH # 1.6 10^3/uL (1.5-5.0); LYMPH % 30.3 % (24.0-44.0); MEAN CORPUSCULAR HEMOGLOBIN 27.9 pg (27.0-33.0); MEAN CORPUSCULAR HGB CONC 32.4 g/dl (32.0-36.5); MEAN CORPUSCULAR VOLUME 86.2 fl (80.0-96.0); MONO # 0.4 10^3/uL (0.0-0.8); MONO % 7.9 % (2.0-8.0); NEUTROPHILS # 3.1 10^3/uL (1.5-8.5); NEUTROPHILS % 58.6 % (36.0-66.0); PLATELET COUNT, AUTOMATED 179 10^3/uL (150-450); RED BLOOD COUNT 4.55 10^6/uL (4.30-6.10); WHITE BLOOD COUNT 5.3 10^3/uL (4.0-10.0)
[2024-07-25] MEDS ORDERED: GLIP-318 PO (14:26)
[2024-07-25] MEDS ORDERED: CYAN-1 PO (14:26)
[2024-07-25] MEDS ORDERED: DULA4.5P SQ (14:26)
[2024-07-25] MEDS ORDERED: ACET-683 PO (14:26)
[2024-07-25] MEDS ORDERED: FINA5TAB2 PO (14:26)
[2024-07-25] MEDS ORDERED: HOME MED LIST COMPLETE! XX SCH (14:30)
[2024-07-25 14:48] LABS: ALBUMIN 3.7 G/DL (3.2-5.2); BILIRUBIN,DIRECT 0.2 MG/DL (<0.4); BILIRUBIN,TOTAL 0.6 MG/DL (0.3-1.2); CREATININE FOR GFR 0.82 MG/DL (0.70-1.30); GLOMERULAR FILTRATION RATE 88.3 (>35); MB/CK RELATIVE INDEX 0.92 (< OR =4); POTASSIUM SERUM 4.7 MMOL/L (3.5-5.1); TOTAL PROTEIN 6.5 G/DL (5.7-8.2)
[2024-07-25 14:52] LABS: THYROID STIMULATING HORMONE 0.459 uIU/ML (0.55-4.78)
[2024-07-25] MEDS ORDERED: GLUCOSE 4 GM CHEW PO PRN (18:20)
[2024-07-25] MEDS ORDERED: GLUCAGON INJ 1MG VIAL SC PRN (18:20)
[2024-07-25] MEDS ORDERED: ACETAMINOPHEN 500 MG TAB PO PRN (18:20)
[2024-07-25] MEDS ORDERED: DEXTROSE 50% 50ML SYRINGE IV PRN (18:20)
[2024-07-25 19:58] LABS: VITAMIN B12 LEVEL 641 PG/ML (211-911)
[2024-07-25] MEDS: INSULIN LISPRO (NovoLOG) PER UNIT SC SCH (21:00)
[2024-07-26] MEDS: ACETAMINOPHEN 325 MG TAB PO PRN (00:54)
[2024-07-26] MEDS: INSULIN LISPRO (NovoLOG) PER UNIT SC SCH (08:08)
[2024-07-26] MEDS: FINASTERIDE 5MG TAB PO SCH (08:09)
[2024-07-26] MEDS: ENOXAPARIN 40MG/0.4ML SYRINGE (J1650 PER 10MG) SC SCH (08:27)
[2024-07-26 10:19] VITALS: BP 177/81
[2024-07-26] MEDS: amLODIPine 5 MG TAB PO SCH (10:19)
[2024-07-26] MEDS: glipiZIDE XL 5 MG TABCR PO SCH (10:19)
[2024-07-26 12:12] VITALS: BP 157/74; TEMP 97.2; O2SAT 97
== END 2024-07-26 12:15 | disposition home or self-care (01) ==
LOC: M ED 13:08 → M ED INP 17:58
PROVIDERS: ADMIT Student in an Organized Health Care Education/Training Program; ATTEND Student in an Organized Health Care Education/Training Program
DX: R41.82 Altered mental status, unspecified (principal); R29.6 Repeated falls; I65.23 Occlusion and stenosis of bilateral carotid arteries; G47.10 Hypersomnia, unspecified; E11.65 Type 2 diabetes mellitus with hyperglycemia; Z79.4 Long term (current) use of insulin; Z79.84 Long term (current) use of oral hypoglycemic drugs; E78.5 Hyperlipidemia, unspecified; N40.1 Benign prostatic hyperplasia with lower urinary tract symptoms; Z79.899 Other long term (current) drug therapy; M79.601 Pain in right arm
CPT/HCPCS: 36415; 70450; 71045; 80048; 80076; 82140; 82550; 82553; 82607; 82803; 83930; 84425; 84443; 84484; 85025; 86780; 93005; 93041; 93880; 94760; 97161; 99285; G0378; J1815

== ENCOUNTER 2024-08-02 10:22 | Emergency (ER) | payer MEDICARE, MEDICAID ==
[~2024-08-02] VITALS: Ht 172.7 cm; Wt 86.1 kg
[~2024-08-02 10:22] MED LIST changes: +ACET-683 PO; +CYAN-1 PO; +DULA4.5P SQ; +FINA5TAB2 PO; +GLIP-318 PO
[2024-08-02 10:29] VITALS: TEMP 97.7
[2024-08-02] MEDS ORDERED: TAMS1CAP17 (10:58)
[2024-08-02 13:12] LABS: BASO % 0.4 % (0.0-1.0); EOS # 0.1 10^3/uL (0.0-0.5); EOS % 2.3 % (0.0-3.0); HEMATOCRIT 40.4 % (42.0-52.0); HEMOGLOBIN 12.9 g/dl (13.5-17.5); LYMPH # 1.7 10^3/uL (1.5-5.0); LYMPH % 33.2 % (24.0-44.0); MEAN CORPUSCULAR HEMOGLOBIN 27.7 pg (27.0-33.0); MEAN CORPUSCULAR HGB CONC 31.9 g/dl (32.0-36.5); MEAN CORPUSCULAR VOLUME 86.9 fl (80.0-96.0); MONO # 0.5 10^3/uL (0.0-0.8); MONO % 9.2 % (2.0-8.0); NEUTROPHILS # 2.8 10^3/uL (1.5-8.5); NEUTROPHILS % 54.5 % (36.0-66.0); PLATELET COUNT, AUTOMATED 208 10^3/uL (150-450); RED BLOOD COUNT 4.65 10^6/uL (4.30-6.10); WHITE BLOOD COUNT 5.1 10^3/uL (4.0-10.0)
[2024-08-02 13:53] LABS: CALCIUM LEVEL 8.9 MG/DL (8.3-10.6); CK-MB VALUE MASS 1.5 NG/ML (<3.6); CREATININE FOR GFR 0.77 MG/DL (0.70-1.30); GLOMERULAR FILTRATION RATE 89.9 (>35); MAGNESIUM LEVEL 1.9 MG/DL (1.8-2.4); MB/CK RELATIVE INDEX 0.7 (< OR =4); POTASSIUM SERUM 4.4 MMOL/L (3.5-5.1)
[2024-08-02] MEDS: traMADol 50 MG TAB PO ONE (14:15)
[2024-08-02] MEDS: ACETAMINOPHEN 325 MG TAB PO ONE (14:15)
[2024-08-02 15:15] VITALS: BP 151/67
[2024-08-02 15:22] VITALS: O2SAT 97
[2024-08-02] MEDS ORDERED: LIDOCAINE W/EPINEPHRINE 1% 20ML VIAL SC ONE (15:45)
[2024-08-02 16:15] LABS: CK-MB VALUE MASS 1.8 NG/ML (<3.6); MB/CK RELATIVE INDEX 0.78 (< OR =4)
[2024-08-02] MEDS ORDERED: TRAM50TA2 PO (16:18)
== END 2024-08-02 16:27 | disposition home or self-care (01) ==
LOC: M ED 10:22
DX: S46.091A Other injury of muscle(s) and tendon(s) of the rotator cuff of right shoulder, initial encounter (principal); M25.511 Pain in right shoulder; E11.9 Type 2 diabetes mellitus without complications; I10 Essential (primary) hypertension; E78.5 Hyperlipidemia, unspecified; N40.0 Benign prostatic hyperplasia without lower urinary tract symptoms; Z88.6 Allergy status to analgesic agent; Z88.8 Allergy status to other drugs, medicaments and biological substances; Z79.899 Other long term (current) drug therapy; Y92.009 Unspecified place in unspecified non-institutional (private) residence as the place of occurrence of the external cause; Y93.89 Activity, other specified; Y99.9 Unspecified external cause status